=== PATIENT | male | born 1940 | race Caucasian/White ===

== ENCOUNTER 2019-12-09 09:22 | Emergency (ER) | payer MEDICARE, SELFPAY ==
--- NOTE | ~2019-12-09 | CT_ITS ---
EXAMINATION: CT brain wo con DATE: 12/09/2019 10:19 INDICATION: Syncope. TECHNIQUE: Computed tomography (CT) of the head was performed without intravenous contrast. The mA wa s adjusted according to patient size. Iterative reconstruction technique was employed. The dose-lengt h product was 605.33 mGy-cm. COMPARISON: Head CT 10/16/2015 FINDINGS: There is no intracranial hemorrhage, acute infarction, or abnormal intracranial mass lesion . The ventricles are normal in size. There are likely changes of ocular lens replacement surgeries. T here is mild mucosal thickening in the paranasal sinuses. The mastoid air cells are normal. IMPRESSION: 1. Normal brain. Reviewed, dictated and finalized at location A. IMPRESSION: 1. Normal brain.
[2019-12-09 09:30] VITALS: BP 121/64; PULSE 80; RESP 18; TEMP 36.7; O2SAT 100
[2019-12-09 09:46] VITALS: BP 128/79; BP 96/73; PULSE 138
--- NOTE | 2019-12-09 09:52 | ECG_ITS ---
Measurements Intervals [place] Rate: 84 P: ID: 0 QRS: -76 QRSD: 150 T: 19 QT: 380 QTc: 451 Interpretive Statements ATRIAL FLUTTER/TACHYCARDIA RIGHT BUNDLE BRANCH BLOCK LEFT ANTERIOR FASCICULAR BLOCK ABNORMAL ECG Electronically Signed On 12-09-2019 12:39:11 CDT by Napoleon Matute D.O.
[2019-12-09 10:00] VITALS: PULSE 78
[2019-12-09] MEDS: SODIUM CHLORIDE 0.9% IV 1,000 ML 999 ML IV CONT ×2 (10:00→12:15)
[2019-12-09 10:03] LABS: Basophils Absolute Auto 0.1 K/mm3 (0.0-0.1); Basophils Percent Auto 1.2 % (0.2-1.2); Eosinophils Absolute Auto 0.1 K/mm3 (0-0.3); Eosinophils Percent Auto 2.8 % (0-4.4); Hematocrit 40.4 % (42.0-52.0); Hemoglobin 13.9 g/dL (14.0-18.0); Immature Granulocyte Absolute 0.03 K/mm3 (0.00-0.031); Immature Granulocyte Percent A 0.6 % (0-0.5); Immature Platelet Fraction Pct 4.3 % (0.9-11.2); Lymphocytes Absolute Auto 1.37 K/mm3 (0.9-3.2); Lymphocytes Percent Auto 27.1 % (18.3-44.2); Mean Corpuscular HGB Conc 34.4 g/dl (32-36); Mean Corpuscular Hemoglobin 33.1 pg (26-34); Mean Corpuscular Volume 96.2 fl (80-100); Mean Platelet Volume 11.5 fl (7.4-10.4); Monocytes Absolute Auto 0.2 K/mm3 (0.1-0.6); Monocytes Percent Auto 4.8 % (2.6-8.5); Neutrophils Absolute Auto 3.2 K/mm3 (1.3-6.7); Neutrophils Percent Auto 63.5 % (45.5-73.1); Platelet Count Result 130 k/mm3 (150-375); Red Cell Distribution Width 13.1 % (11.5-14.5); White Blood Count 5.1 K/mm3 (4.5-10.0)
[2019-12-09 10:12] LABS: Partial Thromboplastin Time 34.4 SECONDS (22.3-36.8); Prothrombin Time 22.4 Seconds (11.1-14.7)
[2019-12-09 10:13] LABS: Blood Urea Nitrogen 17 mg/dL (9-20); Calcium 8.9 mg/dL (8.4-10.2); Carbon Dioxide 23 mmol/L (22-30); Chloride 103 mmol/L (98-107); Estimated CRCL calculation 67 ml/min; Estimated Glomerular Filt Rate > 60; Glucose 180 mg/dL (75-110); Potassium 4.1 mmol/L (3.4-5.0); Sodium 137 mmol/L (137-145)
--- NOTE | 2019-12-09 10:54 | ED.SYNCOPE ---
HPI - Syncope General Chief Complaint: Syncope Stated Complaint: syncopal episode today Time Seen by Provider: 12/09/19 09:32 History of Present Illness HPI narrative: Patient is a 79-year-old male who presents ER after experiencing syncope. Reports he had eaten breakfast and was sitting on the toilet and just finished. He was going to stand up and use the shower when he woke up on the ground with his head on the floor between his legs and his calling to see if he was okay. He is on Xarelto. Believes loss of consciousness was brief. Reports he has been eating and drinking normally. He has had no dark black stools. No diarrhea. Denies runny nose/sore throat/productive cough. No fevers or chills or sweats. Related Data Home Medications Medication Instructions Recorded Confirmed B-complex with vitamin C [Super B 1 tablet PO DAILY 12/09/19 Complex-Vitamin C] atorvastatin 20 mg PO HS 12/09/19 cetirizine [Zyrtec] 10 mg PO HS 12/09/19 diazepam 2 mg PO HS PRN 12/09/19 finasteride 5 mg PO DAILY 12/09/19 glucosamine [place] 2KCl-chondroit 2 tablet PO BID 12/09/19 [Glucosamine-Chondroitin 3X Str] levothyroxine 75 mcg PO DAILY 12/09/19 levothyroxine 100 mcg PO DAILY 12/09/19 losartan 50 mg PO DAILY 12/09/19 metoprolol tartrate 12.5 mg PO BID 12/09/19 omega 8-zdq-jsv-fish oil [[place]-3 1 cap PO BID 12/09/19 Fish Oil] omeprazole 20 mg PO BID 12/09/19 rivaroxaban [Xarelto] 20 mg PO QPM 12/09/19 tamsulosin 0.4 mg PO DAILY 12/09/19 Allergies Allergy/AdvReac Type Severity Reaction Status Date / Time erythromycin base Allergy Severe Hives Verified 12/09/19 09:35 Penicillins Allergy Severe Swelling Verified 12/09/19 09:35 house dust Allergy Intermediate Sneezing Verified 12/09/19 09:35 Sulfa (Sulfonamide Allergy Intermediate Rash Verified 12/09/19 09:35 Antibiotics) Review of Systems Review of Systems: All systems reviewed & are unremarkable except as noted in HPI and below Constitutional: Constitutional: Denies chills, Denies fever(s) and Denies weakness ENT: Denies nasal congestion and Denies sore throat Respiratory: Respiratory: Denies cough and Denies dyspnea Gastrointestinal: Gastrointestinal: Denies abdominal pain, Denies diarrhea, Denies nausea and Denies vomiting Neurologic: Denies confusion, Reports syncope, Denies headache(s), Denies focal weakness and Denies numbness PMFSH Past Medical History Medical History (Updated 12/09/19 @ 12:52 by Jordan Mcgee MD) Atrial fibrillation BPH (benign prostatic hyperplasia) GERD (gastroesophageal reflux disease) Hypertension Hypothyroidism Surgical History Surgical History (Updated 12/09/19 @ 11:11 by Jordan Mcgee MD) History of appendectomy History of bilateral knee replacement History of colonoscopy History of tonsillectomy Family History Family History (Updated 07/21/18 @ 11:07 by DOCTOR UNKNOWN) Mother Family history of diabetes mellitus in first degree relative Father Family history of heart disease in male family member before age 55 Family history of cardiovascular disease, Onset Age: 59 Sibling Asthma Patient's sister is in good health Family history of cardiovascular disease Other Diabetes mellitus Family history of allergic disorder Social History Social History Smoking status: Heavy tobacco smoker Smoking end date: 05/30/89 Alcohol intake: current Gender identity (if verbalized by the patient): Male Exam Narrative: Exam Narrative: GENERAL: Well-appearing, well-nourished, and in no acute distress. HEAD: Normocephalic, atraumatic. ENT: Mucous membranes moist. CHEST: Clear to auscultation. No respiratory distress. HEART: Regular rate and rhythm. Normal peripheral pulses. ABDOMEN: Soft, nontender, nondistended. EXTREMITIES: Normal range of motion. No edema. SKIN: Warm, dry, no rash. NEURO: No focal deficits. Alert and oriented x3. Course Course Emergency Course: P
[2019-12-09 11:22] LABS: Add Urine Microscopic? NO; Appearance Urine Clear (Clear); Bilirubin Urine Negative (Negative); Blood Urine Negative (Negative); Color Urine Yellow (Yellow); Glucose Urine UA Negative (Negative); Ketones Urine Negative (Negative); Leukocyte Esterase Ur Negative LEU/UL (Negative); Nitrate Urine Negative (Negative); Protein Urine Negative (Negative); Specific Grav Ur 1.013 (1.001-1.035); Urobilinogen Urine Negative mg/dL (<2.0)
[2019-12-09 12:02] VITALS: BP 121/73; PULSE 76
[2019-12-09 12:03] VITALS: BP 105/73; BP 111/66; PULSE 71; PULSE 87
[2019-12-09 13:09] VITALS: BP 149/81; PULSE 94; RESP 20; O2SAT 96
== END 2019-12-09 13:10 | disposition home or self-care (01) ==
PROVIDERS: Emergency Provider Emergency Medicine; PCP Family Medicine
DX: I95.1 Orthostatic hypotension (principal); I48.91 Unspecified atrial fibrillation; Z79.01 Long term (current) use of anticoagulants; N40.0 Benign prostatic hyperplasia without lower urinary tract symptoms; K21.9 Gastro-esophageal reflux disease without esophagitis; I10 Essential (primary) hypertension; E03.9 Hypothyroidism, unspecified; Z96.653 Presence of artificial knee joint, bilateral; I48.92 Unspecified atrial flutter; R00.0 Tachycardia, unspecified; I44.4 Left anterior fascicular block
CPT/HCPCS: 36415; 70450; 80048; 81003; 85025; 85055; 85610; 85730; 93005; 96360; 96361; 99284; J7030

== ENCOUNTER 2020-01-07 15:13 | Outpatient (CLI) | payer MEDICARE, SELFPAY ==
--- NOTE | ~2020-01-07 | CT_ITS ---
EXAMINATION: CT brain wo con EXAM DATE: 01/07/2020 15:53 INDICATION: Syncope. Headache posttrauma. TECHNIQUE: Spiral CT of the head was performed without contrast. Axial, coronal and sagittal images were reviewed. The dose-length product (DLP) for this examination was 681.00 mGy-cm. The exposure w as tailored according to patient size, and iterative reconstruction (ASIR) was used as additional dos e reduction technique. Comparison is made to prior examination from 12/09/2019. FINDINGS: There is no acute intraparenchymal hemorrhage. No evidence of intraparenchymal brain mass lesion. No evidence of acute infarction. Please note that initial head CT has limited sensitivity f or small or acute infarctions. There is mild periventricular and subcortical hypodensity, nonspecific but probably related to small vessel ischemic disease. There is mild prominence of the sulci and v entricles related to cerebral atrophy. There is intracranial carotid arteriosclerosis. There are n o extra-axial collections. There is no mass effect or midline shift. The orbits are unremarkable. Soft tissue is unremarkable. The visualized sinuses and mastoid air cells are well aerated. IMPRESSION: 1. No acute intracranial findings. 2. Chronic age related findings. Reviewed, dictated and finalized at location A.
== END 2020-01-07 15:14 | disposition home or self-care (01) ==
LOC: ANHIMG 15:16
PROVIDERS: PCP Family Medicine; Visit Provider Internal Medicine Cardiovascular Disease
DX: R55 Syncope and collapse (principal)
CPT/HCPCS: 70450

== ENCOUNTER 2020-01-14 00:40 | Outpatient (CLI) | payer MEDICARE, SELFPAY ==
[2020-01-14 20:23] LABS: SARS-CoV-2 RNA PCR Negative
== END 2020-01-14 00:41 | disposition home or self-care (01) ==
LOC: ANHCOVIDDT 00:41
PROVIDERS: PCP Family Medicine; Visit Provider Internal Medicine Cardiovascular Disease
DX: Z01.812 Encounter for preprocedural laboratory examination (principal); Z20.828 Contact with and (suspected) exposure to other viral communicable diseases
CPT/HCPCS: 87635; C9803; U0003

== ENCOUNTER 2020-01-16 01:54 | Day surgery (SDC) | payer MEDICARE, SELFPAY ==
[2020-01-15 15:10] VITALS: BMI 34.5
[2020-01-16 07:46] VITALS: BP 111/78; PULSE 84; RESP 14; TEMP 36.6; O2SAT 98
--- NOTE | 2020-01-16 08:48 | WPDHPUPDATE1 ---
History and Physical Update Update Date/Time: 01/16/20 08:48 History and Physical has been reviewed, including an updated exam of the patient. There are NO changes in the patient's condition. Risks, benefits, and alternatives have been discussed and questions answered. Patient agrees to proceed with procedure.
--- NOTE | 2020-01-16 08:49 | PM.PROC ---
Procedure Note - Detailed Date of procedure: 01/16/20 Pre-op diagnosis: Syncope Recurrent unexplained syncope Post-op diagnosis: same Procedure performed: elective loop recorder implantation Description of procedure: Brief history present illness: Patient is a Very pleasant 79 year male with a history of coronary disease, paroxysmal atrial fibrillation hypertension with episodes of unexplained recurrent syncope without warning referred for loop recorder implantation. External monitoring was inconclusive although patient did not have his prototypical symptoms. After verbal and written informed consent was obtained from the patient risks, benefits, and alternatives explained in detail the patient agreed to proceed with the plan of care as outlined above. Patient was evaluated at bedside in the [facility] procedure room. Patient was placed the appropriate supine position. Left anterior chest wall was prepped and draped in the usual sterile fashion. Operators in appropriate sterile garb. The left 4th intercostal space was identified and marked. Utilizing approximately 20 cc of 1% subcutaneous lidocaine the left anterior chest wall was then locally anesthetized. After local anesthesia was achieved, 2 fingerbreadths left of the sternum at the 4th intercostal space was again identified and a 1 cm incision was made with the included skin punch tool. Following this with the included introducer, a tract was made subcutaneously at a 45 degree angle from the sternum. The introducer was then inverted 180 degrees and with the included plunger the Medtronic REVEAL LINQ loop recorder was advanced subcutaneously into position easily and without complication. The plunger was then removed followed by the introducer. Manual pressure was held for least 5-10 min with excellent hemostasis. The device was then interrogated and revealed good fidelity and measured at 0.12 mV. The Medtronic REVEAL LINQ SN [id number] was implanted without complication. The incision was then approximated and closed using ExoFin skin adhesive. The incision was then covered with a sterile dressing. Complications: None Anesthesia: local Surgeon: Brian Washington MD Drains: No Packing: No Pathology: none sent Complications: No immediate complications Condition: stable Disposition: same day Findings: Successful implantation of Medtronic Reveal LINQ for recurrent unexplained syncope.
--- NOTE | 2020-01-16 10:03 | SUR.OPER ---
Patient has no signs of bleeding or hematoma from procedure site. Dressing placed over chest site. Patient shows no signs of distress. Patient to be discharged.
== END 2020-01-16 10:20 | disposition home or self-care (01) ==
PROVIDERS: PCP Family Medicine; Visit Provider Internal Medicine Cardiovascular Disease
PROC: (CPT 33285; principal; 2020-01-16 08:30)
DX: R55 Syncope and collapse (principal); I25.10 Atherosclerotic heart disease of native coronary artery without angina pectoris; I48.0 Paroxysmal atrial fibrillation; I10 Essential (primary) hypertension; I45.2 Bifascicular block; Z79.01 Long term (current) use of anticoagulants
CPT/HCPCS: 33285; C1764

== ENCOUNTER 2021-12-11 12:45 | Outpatient (CLI) | payer MEDICARE, SELFPAY ==
--- NOTE | ~2021-12-11 | US_ITS ---
EXAMINATION: US venous doppler LE RT DATE: 12/11/2021 13:29 INDICATION: Right lower limb pain and swelling. TECHNIQUE: Grayscale ultrasound images without and with compression and Doppler ultrasound images of the right lower extremity veins were obtained. COMPARISON: Ultrasound 04/18/2018 FINDINGS: The visualized portions of right common femoral vein, profunda (deep) femoral vein, femoral vein, pop liteal vein, peroneal veins, posterior tibial veins, and greater saphenous vein outflow are patent. T here is a 3.4 x 1.0 x 2.7 cm hematoma inferior to the knee. IMPRESSION: 1. No deep venous thrombosis. 2. 3.4 cm hematoma inferior to the knee. Reviewed, dictated and finalized at location A.
== END 2021-12-11 12:46 | disposition home or self-care (01) ==
PROVIDERS: PCP Family Medicine; Visit Provider Physician Assistant
DX: E03.9 Hypothyroidism, unspecified (principal); G47.00 Insomnia, unspecified; R60.9 Edema, unspecified; S80.11XD Contusion of right lower leg, subsequent encounter
CPT/HCPCS: 93971

== ENCOUNTER → 2022-08-23 12:09 | Outpatient (CLI) | payer MEDICARE, SELFPAY ==
--- NOTE | ~2022-08-23 | XR_ITS ---
XR cervical spine 4-5V DATE: 08/23/2022 12:40 INDICATION: Neck pain TECHNIQUE: AP, open-mouth, lateral, swimmer views, bilateral oblique views COMPARISON: None FINDINGS: There is osteopenia. There is straightening of the cervical spine which may be due to muscle spasm. C1 and C2 are normally aligned and the odontoid process is intact. No fracture or dislocation or lock ed facet or prevertebral soft tissue swelling. There is prominent anterior spurring throughout the cervical spine. Moderate degenerative disease at C2-3. C3-4 and C4-5 interspaces are relatively preserved. Approximately 1.5 mm anterolisthesis at C4-5. Moderately severe degenerative disc disease at C5-6 and C6-7. Left-sided cardiac pacemaker device. IMPRESSION: Straightening of cervical spine which may be due to muscle spasm Osteopenia Prominent cervical spondylosis Reviewed, dictated and finalized at location B.
== END ==
PROVIDERS: PCP Family Medicine; Visit Provider Physician Assistant
DX: M47.812 Spondylosis without myelopathy or radiculopathy, cervical region (principal); M85.88 Other specified disorders of bone density and structure, other site
CPT/HCPCS: 72050

== ENCOUNTER 2022-08-26 14:22 | Outpatient (CLI) | payer MEDICARE, SELFPAY ==
--- NOTE | ~2022-08-26 | CT_ITS ---
EXAMINATION: CT brain wo con DATE: 08/26/2022 14:38 INDICATION: Headache at vertex for 2 weeks TECHNIQUE: Computed tomography (CT) of the head was performed without intravenous contrast. The mA wa s adjusted according to patient size. Iterative reconstruction technique was employed. Exam dose: 60 5.33 mGy-cm total exam DLP. COMPARISON: 01/07/2020 CT brain FINDINGS: There is a 2.3 cm heterogeneous largely hyperdense right cerebellar hemispheric mass with s urrounding vasogenic edema. No other intracranial mass lesion or hemorrhage, midline shift or mass effect is noted. Moderate central and cortical cerebral volume loss. Bilateral vertebral artery, basilar artery and bilateral carotid siphon and supraclinoid internal car otid artery calcifications are noted. There is nonspecific diminished attenuation cerebral white eddie er, likely due to chronic small vessel ischemic changes. No subdural or epidural hematoma. The included mastoid air cells and paranasal sinuses are normally developed and aerated. No fracture or bone destruction of the cranial vault is detected. IMPRESSION: 2.3 cm right cerebellar mass lesion with adjacent vasogenic edema; diffusion diagnosis i ncludes primary or metastatic brain neoplasm, meningioma Reviewed, dictated and finalized at Location A. Reviewed, dictated and finalized at location L. 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
== END 2022-08-26 14:23 | disposition home or self-care (01) ==
PROVIDERS: PCP Family Medicine; Visit Provider Physician Assistant
DX: R51.9 Headache, unspecified (principal); G93.89 Other specified disorders of brain
CPT/HCPCS: 70450

== ENCOUNTER 2023-04-07 01:02 | Emergency (ER) | payer MEDICARE, SELFPAY ==
--- NOTE | ~2023-04-07 | XR_ITS ---
Portable chest x-ray Comparison: 12/26/2014 Clinical History: Pain Findings: There is probable linear left basilar scarring, stable from prior exam. No acute pulmonary abnormality seen. Cardiomediastinal silhouette is stable, with pacemaker device and cardiac loop re sanju. Bones and soft tissues are unremarkable. Impression: No acute pulmonary abnormality. Mild cardiomegaly with pacemaker device and cardiac loop recorder. Reviewed, dictated and finalized at location . ER SPRAYER Impression: No acute pulmonary abnormality. Mild cardiomegaly with pacemaker device and cardiac loop recorder.
--- NOTE | ~2023-04-07 | CT_ITS ---
CT of the Abdomen and Pelvis: Indication: Abdominal pain Technique: 2.5 mm axial scans were obtained through the abdomen and pelvis following intravenous adm inistration of 100 cc of Omnipaque 350. Dose reduction technique was used on this scan by utilizing a utomated exposure control and iterative reconstruction technique. The dose-length product (DLP) was 1 214.81 mGy-cm. Findings: Scans through the lung bases are unremarkable. The liver, spleen, pancreas, adrenals and kidneys are within normal limits. Small gallstones present. There are atherosclerotic calcifications of the aorta. No lymphadenopathy. No bowel obstruction or bowel wall thickening. There is no evidence to suggest acute appendicitis. Images through the pelvis were performed. Urinary bladder unremarkable. Prostate gland is enlarged. N o ascites. Impression: Cholelithiasis. Enlarged prostate gland. Reviewed, dictated and finalized at location . FITTER Impression: Cholelithiasis. Enlarged prostate gland.
[2023-04-07 01:05] VITALS: BP 167/78; PULSE 81; RESP 20; TEMP 36.8; O2SAT 97
[2023-04-07 01:36] VITALS: BP 140/71; PULSE 56; RESP 18; O2SAT 99
--- NOTE | 2023-04-07 01:42 | ECG_ITS ---
Measurements Intervals [place] Rate: 51 P: DE: 0 QRS: -52 QRSD: 174 T: 67 QT: 484 QTc: 449 Interpretive Statements ELECTRONIC VENTRICULAR PACEMAKER UNDERLYING ATRIAL FIBRILLATION/FLUTTER NO FURTHER INTERPRETATION IS POSSIBLE ABNORMAL ECG COMPARED TO ECG 12/09/2019 09:32:25 NO SIGNIFICANT CHANGES Electronically Signed On 04-07-2023 7:11:58 [employer] by Napoleon Matute D.O.
--- NOTE | 2023-04-07 01:45 | ED.GENADULT ---
HPI - General Adult General Chief complaint: Abdominal Pain Stated complaint: abd pain Time Seen by Provider: 04/07/23 01:32 History of Present Illness HPI narrative: Patient 83-year-old gentleman who presents the emergency department with chief complaint of epigastric pain. Patient reports that this evening he started having discomfort in his epigastric region the patient reports is nonradiating reports no nausea no vomiting denies fever. Patient reports he took some Tums some Pepto-Bismol and did not have any improvement in his symptoms. Patient reports prior history of an appendectomy reports he does have history of A-fib has a pacemaker. The patient also reports he has history of hiatal hernia. The patient denies specific localizing chest pain Related Data Home Medications Medication Instructions Recorded Confirmed B-complex with vitamin C (Super B 1 tablet PO DAILY 12/09/19 12/03/22 Complex-Vitamin C tablet) cetirizine 10 mg tablet (Zyrtec) 10 mg PO HS 12/09/19 12/03/22 finasteride 5 mg tablet 5 mg PO DAILY 12/09/19 12/03/22 glucosamine sulf dipotassium Cl 1 tablet PO BID 12/09/19 12/03/22 750 mg-chondroitin sulf 600 mg tablet (Glucosamine-Chondroitin 3X Triple Strength) levothyroxine 100 mcg tablet 100 mcg PO DAILY 12/09/19 12/03/22 levothyroxine 75 mcg tablet 75 mcg PO DAILY 12/09/19 12/03/22 losartan 50 mg tablet 50 mg PO DAILY 12/09/19 12/03/22 omega 4-aad-kxi-fish oil 910 1 cap PO BID 12/09/19 12/03/22 mg-1,400 mg capsule ([place]-3 Fish Oil) omeprazole 20 mg capsule,delayed 20 mg PO BID 12/09/19 12/03/22 release rivaroxaban 20 mg tablet (Xarelto) 20 mg PO QPM 12/09/19 12/03/22 tamsulosin 0.4 mg capsule 0.4 mg PO DAILY 12/09/19 12/03/22 metoprolol tartrate 25 mg tablet 25 mg PO BID 06/12/22 12/03/22 Allergies Allergy/AdvReac Type Severity Reaction Status Date / Time erythromycin base Allergy Severe Hives Verified 12/03/22 09:35 Penicillins Allergy Severe Swelling Verified 12/03/22 09:35 house dust Allergy Intermediate Sneezing Verified 12/03/22 09:35 Sulfa (Sulfonamide Allergy Intermediate Rash Verified 12/03/22 09:35 Antibiotics) clindamycin Allergy Difficulty Verified 04/07/23 02:00 Swallowing Review of Systems Review of Systems: A 10 system review of systems was completed on the patient and is negative except for what is stated in the HPI. Nursing and ancillary documentation was reviewed. 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 Benign prostatic hyperplasia with lower urinary tract symptoms BPH (benign prostatic hyperplasia) Central retinal vein occlusion, right eye, with retinal neovascularization Erectile dysfunction GERD (gastroesophageal reflux disease) Hyperlipidemia, unspecified Hypertension Hypothyroidism Insomnia, unspecified snf current use of anticoagulant therapy Low back pain, unspecified Venous insufficiency (chronic) (peripheral) Surgical History Surgical History 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
[2023-04-07 01:58] LABS: Basophils Percent Auto 0.9 % (0.2-1.2); Eosinophils Absolute Auto 0.1 K/mm3 (0-0.3); Hematocrit 35.6 % (42.0-52.0); Hemoglobin 11.3 g/dL (14.0-18.0); Immature Granulocyte Absolute 0.01 K/mm3 (0.00-0.031); Immature Granulocyte Percent A 0.2 % (0-0.5); Lymphocytes Absolute Auto 0.92 K/mm3 (0.9-3.2); Lymphocytes Percent Auto 20.7 % (18.3-44.2); Mean Corpuscular HGB Conc 31.7 g/dl (32-36); Mean Corpuscular Hemoglobin 31.7 pg (26-34); Monocytes Absolute Auto 0.3 K/mm3 (0.1-0.6); Monocytes Percent Auto 7.4 % (2.6-8.5); Neutrophils Absolute Auto 3.1 K/mm3 (1.3-6.7); Neutrophils Percent Auto 68.8 % (45.5-73.1); Platelet Count Result 127 k/mm3 (150-375); Red Blood Count 3.56 M/mm3 (4.6-6.20); Red Cell Distribution Width 14.4 % (11.5-14.5); White Blood Count 4.5 K/mm3 (4.5-10.0)
[2023-04-07] MEDS: MORPHINE SULFATE (*CRX) 4 MG/ML INJ 2 MG IV PUSH (01:58)
[2023-04-07] MEDS: FAMOTIDINE 20 MG/2 ML VIAL IV PUSH (01:58)
[2023-04-07] MEDS: PANTOPRAZOLE SODIUM IV 40 MG VIAL IV PUSH (01:58)
[2023-04-07] MEDS: ONDANSETRON INJ 4 MG/2 ML VIAL IV PUSH (01:58)
[2023-04-07] MEDS: SODIUM CHLORIDE 0.9% IV 1,000 ML 500 ML IV CONT (01:59)
[2023-04-07 02:11] LABS: INR 2.8; Prothrombin Time 31.7 Seconds (11.1-14.7)
[2023-04-07 02:12] LABS: Partial Thromboplastin Time 42.6 SECONDS (22.3-36.8)
[2023-04-07 02:13] LABS: Lactic Acid Reflex 1.8 mmol/L (0.7-2.0)
[2023-04-07 02:41] LABS: Alanine Aminotransferase 29 U/L (6-50); Albumin Level 3.9 g/dL (3.5-5.1); Alkaline Phosphatase 64 U/L (38-126); Anion Gap 6 mmol/L (8-16); Aspartate Amino Transferase 38 U/L (17-59); Bilirubin,Total 0.8 mg/dL (0.2-1.3); Blood Urea Nitrogen 17 mg/dL (9-20); Calcium 8.9 mg/dL (8.4-10.2); Carbon Dioxide 30 mmol/L (22-30); Chloride 103 mmol/L (98-107); Estimated CRCL calculation 48 ml/min; Estimated Glomerular Filt Rate 58; Glucose 134 mg/dL (65-110); Lipase 70 U/L (23-300); Magnesium 2.1 mg/dL (1.6-2.3); NT Pro B Type Natriuretic Pept 1450 pg/mL (19.9-100); Potassium 4.9 mmol/L (3.4-5.0); Sodium 139 mmol/L (137-145); Troponin I < 0.012 ng/mL (0.000-0.034)
[2023-04-07 03:08] VITALS: BP 141/77; PULSE 50; RESP 16; O2SAT 98
[2023-04-07 03:48] LABS: Appearance Urine Clear (Clear); Bilirubin Urine Negative (Negative); Blood Urine Negative (Negative); Color Urine Yellow (Yellow); Glucose Urine UA Negative (Negative); Ketones Urine Negative (Negative); Leukocyte Esterase Ur Negative LEU/UL (Negative); Nitrate Urine Negative (Negative); Protein Urine Negative (Negative); Urobilinogen Urine 0.2 mg/dL (<2.0)
[2023-04-07 03:58] LABS: Specific Grav Ur 1.036 (1.001-1.035)
[2023-04-07 03:59] LABS: Add Urine Microscopic? NO
[2023-04-07 04:42] VITALS: BP 133/69; PULSE 50; RESP 18; O2SAT 98
[2023-04-07 05:05] LABS: Troponin I < 0.012 ng/mL (0.000-0.034)
[2023-04-07 06:23] VITALS: BP 134/72; PULSE 54; RESP 16; O2SAT 99
== END 2023-04-07 06:23 | disposition home or self-care (01) ==
PROVIDERS: Emergency Provider Emergency Medicine; PCP Family Medicine
DX: K80.20 Calculus of gallbladder without cholecystitis without obstruction (principal); I48.91 Unspecified atrial fibrillation; I25.10 Atherosclerotic heart disease of native coronary artery without angina pectoris; I10 Essential (primary) hypertension; I87.2 Venous insufficiency (chronic) (peripheral); E78.5 Hyperlipidemia, unspecified; E03.9 Hypothyroidism, unspecified; N40.0 Benign prostatic hyperplasia without lower urinary tract symptoms; K22.70 Barrett's esophagus without dysplasia; K21.9 Gastro-esophageal reflux disease without esophagitis; Z95.0 Presence of cardiac pacemaker; Z96.653 Presence of artificial knee joint, bilateral; Z98.49 Cataract extraction status, unspecified eye; Z96.1 Presence of intraocular lens; Z87.891 Personal history of nicotine dependence; Z79.01 Long term (current) use of anticoagulants
CPT/HCPCS: 36415; 71045; 74177; 80053; 81003; 83605; 83690; 83735; 83880; 84484; 85025; 85610; 85730; 93005; 96361; 96374; 96375; 99284; C9113; J2270; J2405; J7030; Q9967

== ENCOUNTER 2023-04-27 11:13 | Outpatient (CLI) | payer MEDICARE, SELFPAY ==
[2023-04-27 11:54] LABS: Amylase 50 U/L (30-110)
== END 2023-04-27 11:14 | disposition home or self-care (01) ==
LOC: ANHSURGERY 11:20
PROVIDERS: PCP Family Medicine; Visit Provider Surgery
DX: Z01.818 Encounter for other preprocedural examination (principal); K80.20 Calculus of gallbladder without cholecystitis without obstruction
CPT/HCPCS: 36415; 82150; 86850; 86900; 86901

== ENCOUNTER 2023-05-03 00:07 | Day surgery (SDC) | payer MEDICARE, SELFPAY ==
--- NOTE | 2023-04-26 14:51 | PC.NURSE ---
Report to the Outpatient Waiting Room, entrance under the green pavilion located off [facility], at time __0800 on date __05/03/23 . Planned Procedure Time: __1000 . Time changes happen often and if your time is changed the preop area will call you the afternoon before. - You and your visitor will be asked to self-screen and do not enter if you have any COVID symptoms. - A mask is optional within the hospital at this time. Patients may have clear liquids (water, carbonated beverages, clear teas, apple juice) until 3 hours prior to surgery with a maximum of 20 ounces. - No food from midnight until time of surgery - Infants may have breast milk until 4 hours before surgery, infant formula 6 hours prior to surgery. - Children will be allowed to drink immediately following surgery. If applicable, please bring a bottle or sippy cup to assist with drinking. Juice, water, soda, and popsicles are readily available. For infants on formula, please bring formula the day of surgery. Pacifiers are allowed. Take the following medications with a SIP of water the morning of surgery: __LEVOTHYROXINE,METOPROLOL DO NOT STOP ANY OF YOUR OTHER PRESCRIPTION MEDICATIONS PRIOR TO SURGERY ?EXCEPT THE FOLLOWING Medications to discontinue per physician _HOLD XARELTO 2 DAYS PRE OP PER DR BACA.LAST DOSE 04/30/23. ALL VITAMINS AND SUPPLEMENTS 3 DAYS PRE OP.LAST DOSE 04/29/23 Please no make-up, nail [place], hairspray, perfume, deodorant, or body powder the day of surgery. No jewelry (including any body piercings) or valuables the day of surgery, leave them at home. Please take a shower or bath the night before, or the morning of, surgery with an antibacterial soap. Wear comfortable, loose fitting clothing. Children are encouraged to wear pajamas. - Jewelry must be removed prior to entering the operating room. Rings and piercings that are not removed may be cut off. - The hospital will not accept responsibility for valuables. - Please leave all valuables, including medications, at home the day of surgery. If you are going home after surgery, a licensed [employer] driver must drive you home. - NO public transportation without another adult if you receive anesthesia. - We recommend that an adult stay with you for 24 hours following discharge. - We also recommend that you do not drive, make important decision, drink alcoholic beverages, or take any drugs that were not prescribed by your health care provider for at least 24 hours after your discharge time. For Pediatric surgeries, we recommend two adults accompany the child home. Follow any additional instructions given to you from your surgeon. If you or anyone in your household have experienced Covid symptoms in the past week, please notify your surgeon or the nurse liaison at the phone number below for possible testing. Telephone instructions given to ___PATIENT and asked if any additional questions and then verbalized understanding. Patient advised to call surgeon office or pre surgery nurse liaison [phone] if any additional questions.
[2023-04-26 15:18] VITALS: BMI 36.6
[2023-05-03] VITALS (10 sets, daily range): BP systolic 105–146; BP diastolic 64–79; PULSE 50–75; RESP 16–28; TEMP 36.4–36.9; O2SAT 92–100
[2023-05-03] MEDS: ACETAMINOPHEN 500 MG TABLET 1000 MG PO (08:17)
[2023-05-03] MEDS: LACTATED RINGERS 1,000 ML 30 ML IV CONT ×2 (08:37→11:40)
[2023-05-03] MEDS: KETOROLAC 15 MG/ML VIAL (*BKC) IV PUSH (08:42)
[2023-05-03] MEDS: INDOCYANINE GREEN 25 MG VIAL WITH DILUENT 3.75 MG IV PUSH (08:42)
--- NOTE | 2023-05-03 10:02 | WPDHPUPDATE1 ---
History and Physical Update Update Date/Time: 05/03/23 10:02 History and Physical has been reviewed, including an updated exam of the patient. There are NO changes in the patient's condition. The plan will change to recommending laparoscopic cholecystectomy, da David assisted. Otherwise the assessment and recommendations are unchanged. Risks, benefits, and alternatives have been discussed and questions answered. Patient agrees to proceed with procedure.
--- NOTE | 2023-05-03 10:08 | WPDANESEPPF ---
Anes - Initial Pre Proc Eval Procedure: Operation Date: 05/03/23 10:00 Proposed Procedures p Laparoscopic Cholecystectomy, Davinci Assisted - Freddie Ruth DO Date/Time: 05/03/23 10:08 Surgeon: Freddie Ruth DO Pre Op Diagnosis: symptomatic cholelithiasis Patient Data Age: 83 Gender: M Height: 1.65 m Weight: 98.3 kg Last Vital Signs Temp 97.6 F 05/03/23 08:44 Pulse 65 05/03/23 08:44 Resp 16 05/03/23 08:44 BP 118/64 05/03/23 08:44 Pulse Ox 97 05/03/23 08:44 O2 Del Method Room Air 05/03/23 08:44 Allergies Allergy/AdvReac Type Severity Reaction Status Date / Time erythromycin base Allergy Severe Hives Verified 05/03/23 08:12 Penicillins Allergy Severe Swelling Verified 05/03/23 08:12 house dust Allergy Intermediate Sneezing Verified 05/03/23 08:12 Sulfa (Sulfonamide Allergy Intermediate Rash Verified 05/03/23 08:12 Antibiotics) clindamycin Allergy Difficulty Verified 05/03/23 08:12 Swallowing Home Medications Medication Instructions Recorded Confirmed Type B-complex with vitamin C (Super B 1 tablet PO DAILY 12/09/19 04/26/23 History Complex-Vitamin C tablet) cetirizine 10 mg tablet (Zyrtec) 10 mg PO HS 12/09/19 04/26/23 History finasteride 5 mg tablet 5 mg PO HS 12/09/19 04/26/23 History glucosamine sulf dipotassium Cl 1 tablet PO BID 12/09/19 04/26/23 History 750 mg-chondroitin sulf 600 mg tablet (Glucosamine-Chondroitin 3X Triple Strength) levothyroxine 100 mcg tablet 100 mcg PO DAILY 12/09/19 04/26/23 History levothyroxine 75 mcg tablet 75 mcg PO 4XW 12/09/19 04/26/23 History losartan 50 mg tablet 50 mg PO DAILY 12/09/19 04/26/23 History omega 2-wxl-kij-fish oil 910 1 cap PO BID 12/09/19 04/26/23 History mg-1,400 mg capsule ([place]-3 Fish Oil) omeprazole 20 mg capsule,delayed 20 mg PO BID 12/09/19 04/26/23 History release rivaroxaban 20 mg tablet (Xarelto) 20 mg PO QPM 12/09/19 04/26/23 History tamsulosin 0.4 mg capsule 0.4 mg PO DAILY 12/09/19 04/26/23 History atorvastatin 20 mg tablet 20 mg PO QHS 90 days #90 tabs 12/13/22 04/26/23 Rx triamcinolone acetonide 0.1 % 1 applic topical BID PRN rash #80 12/30/22 04/26/23 Rx topical cream grams diazepam 2 mg tablet 2 mg PO HS PRN Muscle Pain #90 tabs 04/04/23 04/26/23 Rx famotidine 40 mg tablet (Pepcid) 40 mg PO DAILY #30 tabs 04/07/23 04/26/23 Rx metoprolol tartrate 50 mg tablet 50 mg PO BID 04/26/23 04/26/23 History psyllium husk 0.4 gram capsule 0.4 g PO BID 04/26/23 04/26/23 History (Fiber (psyllium husk)) Patient hx anesthesia problems: none Family hx anesthesia problems: none Results Review: All pre-operative results and documents have been reviewed as part of the pre-operative evaluation. 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 Benign prostatic hyperplasia with lower urinary tract symptoms BPH (benign prostatic hyperplasia) Central retinal vein occlusion, right eye, with retinal neovascularization Erectile dysfunction GERD (gastroesophageal reflux disease) Hyperlipidemia, unspecified Hypertension Hypothyroidism Insomnia, unspecified senior care current use of anticoagulant therapy Low back pain, unspecified Venous insufficiency (chronic) (peripheral) Surgical History Surgical History 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
[2023-05-03] MEDS: ceFAZolin 2 GM/D5W 50 ML 2 GM/50 ML BAG IVPB (10:32)
[2023-05-03] MEDS: BUPIVACAINE/EPINEPHRINE 0.5% 50 ML VIAL 30 ML INFILTRATE (10:53)
--- NOTE | 2023-05-03 11:45 | W.PM.PROC2 ---
Procedure Note - Detailed Date of Procedure 05/03/23 Pre-op Diagnosis symptomatic cholelithiasis Post-op Diagnosis Same Procedure Performed 1. Laparoscopic cholecystectomy with cholangiography, da David assisted 2. Interpretation of cholangiography Surgeon Freddie Ruth DO Anesthesia General and Local (0.5% bupivacaine) Indications This is an 83-year-old man who presented to the emergency department 1 month ago with epigastric pain. CT head showed evidence of cholelithiasis. He he did not have any signs of cholecystitis at that time. He was then seen in the office and discussions were made with the patient about treatment options. Decision was made to proceed with laparoscopic cholecystectomy da David assisted, possible open. Findings Laparoscopic cholecystectomy was performed. The patient received indocyanine green intravenously preop. This was used with near infrared fluorescent imaging to adequately visualize the biliary anatomy. There appeared to likely be a stone lodged within the cystic duct and no uptake was visualized within the gallbladder itself. The more distal cystic duct did appear to have indocyanine green perfusion. The common bile duct was also identified and protected in its location. The gallbladder appeared slightly dilated and contained gallbladder sludge. The cystic duct appeared normal in size. The gallbladder was removed and sent to the lab for pathology. Description of Procedure Procedure as well as risks, benefits, and alternatives were discussed with the patient. Written consent was obtained and placed in chart prior to procedure. 1.5 mL of indocyanine green was given intravenously in preop. Patient was brought back to surgical suite. She was placed supine on operating table. Time-out was done to confirm patient and procedure. She was then intubated by the anesthesia department. Her abdomen was then prepped and draped in sterile fashion using chlorhexidine prep. 0.5% bupivacaine was infiltrated locally at the site of each port placement. An 8 mm incision was made just superior to the umbilicus and a 5 mm Optiview trocar was then advanced through the abdominal layers under direct visualization. Once inside the abdominal cavity, carbon dioxide insufflation was used to create a pneumoperitoneum. The camera was inserted and the abdomen was inspected. No mediated abnormalities were noted. The patient was placed in 10? reverse Trendelenburg position and rotated 10? to the left. Two 8 mm incisions were made in the right lateral abdomen and 2 8 mm trocars were inserted under direct visualization. A 12 mm incision was made in the left lateral abdomen and a 12 mm trocar was inserted under direct visualization. The 5 mm Optiview trocar was then removed and another 8 mm trocar was inserted in its place. The robotic arms were then brought up to the patient's bedside and secured to each port. The camera and instruments were inserted. I then moved over to the robotic consult to take control of the camera and instruments. The gallbladder was grasped at the fundus and retracted cephalad. The infundibulum of the gallbladder was then grasped and retracted laterally. Hook electrocautery was then used to carefully dissect around the neck of the gallbladder. The cystic duct was identified and a window was created around it using hook electrocautery. The cystic artery was also identified and a window was created behind it using hook electrocautery. Critical view of safety was identified visualizing the cystic duct running directly into the neck of the gallbladder and the cystic artery running directly into the wall the gallbladder. The camera view was switched to firefly mode and the indocyanine green within the gallbladder and cystic duct was clearly visualized. No other structures were noted running into this region and there did not appear to be any obstruction of the cystic duct impeding flow of bile into the gallbladder. The
[2023-05-03] MEDS: ONDANSETRON INJ 4 MG/2 ML VIAL IV PUSH (12:10)
[2023-05-03] MEDS: fentaNYL CITRATE INJ (*CRX) 100 MCG/2 ML VIAL 25 MCG IV PUSH ×2 (12:16→12:21)
[2023-05-03] MEDS: oxyCODONE HCL (*CRX) 5 MG TAB IR PO (13:10)
== END 2023-05-03 14:15 | disposition home or self-care (01) ==
PROVIDERS: PCP Family Medicine; Visit Provider Surgery
PROC: 0FT44ZZ Resection of Gallbladder, Percutaneous Endoscopic Approach (ICD-10-PCS; CPT 47562; principal; 2023-05-03 10:00)
DX: K80.20 Calculus of gallbladder without cholecystitis without obstruction (principal); I48.0 Paroxysmal atrial fibrillation; K21.9 Gastro-esophageal reflux disease without esophagitis; E78.5 Hyperlipidemia, unspecified; I10 Essential (primary) hypertension; E03.9 Hypothyroidism, unspecified; Z87.891 Personal history of nicotine dependence
CPT/HCPCS: 47563; 88304; A9270; J0690; J1100; J1885; J2405; J2704; J2710; J3010; J7120

== ENCOUNTER 2023-10-05 12:01 | Outpatient (CLI) | payer MEDICARE, SELFPAY ==
[2023-10-05 12:24] LABS: Basophils Absolute Auto 0.1 K/mm3 (0.0-0.1); Basophils Percent Auto 1.3 % (0.2-1.2); Eosinophils Absolute Auto 0.3 K/mm3 (0-0.3); Eosinophils Percent Auto 5.4 % (0-4.4); Hematocrit 29.2 % (42.0-52.0); Immature Granulocyte Absolute 0.04 K/mm3 (0.00-0.031); Immature Granulocyte Percent A 0.9 % (0-0.5); Lymphocytes Absolute Auto 1.16 K/mm3 (0.9-3.2); Lymphocytes Percent Auto 25.2 % (18.3-44.2); Mean Corpuscular HGB Conc 30.8 g/dl (32-36); Mean Corpuscular Hemoglobin 28.4 pg (26-34); Mean Corpuscular Volume 92.1 fl (80-100); Mean Platelet Volume 9.9 fl (7.4-10.4); Monocytes Absolute Auto 0.4 K/mm3 (0.1-0.6); Monocytes Percent Auto 7.8 % (2.6-8.5); Neutrophils Absolute Auto 2.7 K/mm3 (1.3-6.7); Neutrophils Percent Auto 59.4 % (45.5-73.1); Platelet Count Result 148 k/mm3 (150-375); Red Blood Count 3.17 M/mm3 (4.6-6.20); Red Cell Distribution Width 15.3 % (11.5-14.5); White Blood Count 4.6 K/mm3 (4.5-10.0)
[2023-10-05 16:35] LABS: Iron 56 ug/dL (49-181)
[2023-10-05 16:39] LABS: Alanine Aminotransferase 18 U/L (6-50); Albumin Level 4.2 g/dL (3.5-5.1); Alkaline Phosphatase 89 U/L (38-126); Anion Gap 10 mmol/L (4-12); Aspartate Amino Transferase 27 U/L (17-59); Bilirubin,Total 0.8 mg/dL (0.2-1.3); Blood Urea Nitrogen 16 mg/dL (9-20); Calcium 9.4 mg/dL (8.4-10.2); Carbon Dioxide 25 mmol/L (22-30); Chloride 106 mmol/L (98-107); Estimated Glomerular Filt Rate 58; Glucose 95 mg/dL (65-110); Lactate Dehydrogenase 200 U/L (120-246); Potassium 4.5 mmol/L (3.4-5.0); Sodium 141 mmol/L (137-145)
[2023-10-05 16:46] LABS: Percent Iron Saturation 13 % (20-50)
[2023-10-05 18:19] LABS: Folic Acid > 20.0 ng/mL (2.76->20)
[2023-10-08 11:28] LABS: Methylmalonic Acid 214 nmol/L (87-318)
[2023-10-12 13:08] LABS: Soluble Transferrin Receptor 2.03 mg/L (0.76-1.76)
== END 2023-10-05 12:02 | disposition home or self-care (01) ==
LOC: ANHLAB 12:04
PROVIDERS: PCP Family Medicine; Visit Provider Nurse Practitioner Family
DX: D50.9 Iron deficiency anemia, unspecified (principal)
CPT/HCPCS: 36415; 80053; 82607; 82728; 82746; 83540; 83550; 83615; 83921; 84238; 85025; 86038

== ENCOUNTER 2024-01-02 09:34 | Outpatient (CLI) | payer MEDICARE, SELFPAY ==
[2024-01-02 10:07] LABS: Basophils Absolute Auto 0.1 K/mm3 (0.0-0.1); Basophils Percent Auto 1.1 % (0.2-1.2); Eosinophils Absolute Auto 0.1 K/mm3 (0-0.3); Eosinophils Percent Auto 2.8 % (0-4.4); Hematocrit 37.5 % (42.0-52.0); Hemoglobin 12.7 g/dL (14.0-18.0); Immature Granulocyte Absolute 0.04 K/mm3 (0.00-0.031); Immature Granulocyte Percent A 0.9 % (0-0.5); Lymphocytes Absolute Auto 0.96 K/mm3 (0.9-3.2); Lymphocytes Percent Auto 20.8 % (18.3-44.2); Mean Corpuscular HGB Conc 33.9 g/dl (32-36); Mean Corpuscular Volume 100.3 fl (80-100); Mean Platelet Volume 9.6 fl (7.4-10.4); Monocytes Absolute Auto 0.3 K/mm3 (0.1-0.6); Monocytes Percent Auto 5.8 % (2.6-8.5); Neutrophils Absolute Auto 3.2 K/mm3 (1.3-6.7); Neutrophils Percent Auto 68.6 % (45.5-73.1); Platelet Count Result 132 k/mm3 (150-375); Red Blood Count 3.74 M/mm3 (4.6-6.20); Red Cell Distribution Width 15.8 % (11.5-14.5); White Blood Count 4.6 K/mm3 (4.5-10.0)
[2024-01-02 12:51] LABS: Iron 97 ug/dL (49-181)
[2024-01-02 12:55] LABS: Alanine Aminotransferase 18 U/L (6-50); Alkaline Phosphatase 86 U/L (38-126); Anion Gap 4 mmol/L (4-12); Aspartate Amino Transferase 31 U/L (17-59); Bilirubin,Total 0.9 mg/dL (0.2-1.3); Blood Urea Nitrogen 13 mg/dL (9-20); Calcium 9.3 mg/dL (8.4-10.2); Carbon Dioxide 34 mmol/L (22-30); Chloride 101 mmol/L (98-107); Estimated Glomerular Filt Rate > 60; Glucose 103 mg/dL (65-110); Potassium 5.2 mmol/L (3.4-5.0); Sodium 139 mmol/L (137-145)
[2024-01-02 13:03] LABS: Percent Iron Saturation 37 % (20-50)
[2024-01-02 14:06] LABS: Folic Acid > 20.0 ng/mL (2.76->20)
== END 2024-01-02 09:35 | disposition home or self-care (01) ==
LOC: ANHLAB 09:36
PROVIDERS: Nurse Practitioner Family; PCP Family Medicine; Visit Provider Internal Medicine Hematology & Oncology
DX: D50.9 Iron deficiency anemia, unspecified (principal)
CPT/HCPCS: 36415; 80053; 82607; 82728; 82746; 83540; 83550; 85025

== ENCOUNTER 2024-05-01 08:56 | Outpatient (CLI) | payer MEDICARE, SELFPAY ==
[2024-05-01 09:13] LABS: Basophils Absolute Auto 0.1 K/mm3 (0.0-0.1); Basophils Percent Auto 1.2 % (0.2-1.2); Eosinophils Absolute Auto 0.1 K/mm3 (0-0.3); Eosinophils Percent Auto 2.9 % (0-4.4); Hematocrit 36.9 % (42.0-52.0); Hemoglobin 12.5 g/dL (14.0-18.0); Immature Granulocyte Absolute 0.02 K/mm3 (0.00-0.031); Immature Granulocyte Percent A 0.5 % (0-0.5); Lymphocytes Percent Auto 19.3 % (18.3-44.2); Mean Corpuscular HGB Conc 33.9 g/dl (32-36); Mean Corpuscular Hemoglobin 34.9 pg (26-34); Mean Corpuscular Volume 103.1 fl (80-100); Mean Platelet Volume 10.5 fl (7.4-10.4); Monocytes Absolute Auto 0.3 K/mm3 (0.1-0.6); Monocytes Percent Auto 7.2 % (2.6-8.5); Neutrophils Absolute Auto 2.9 K/mm3 (1.3-6.7); Neutrophils Percent Auto 68.9 % (45.5-73.1); Platelet Count Result 105 k/mm3 (150-375); Red Blood Count 3.58 M/mm3 (4.6-6.20); Red Cell Distribution Width 13.2 % (11.5-14.5); White Blood Count 4.2 K/mm3 (4.5-10.0)
[2024-05-01 12:58] LABS: Iron 95 ug/dL (49-181)
[2024-05-01 13:05] LABS: Anion Gap 2 mmol/L (4-12); Blood Urea Nitrogen 15 mg/dL (9-20); Calcium 8.9 mg/dL (8.4-10.2); Carbon Dioxide 33 mmol/L (22-30); Chloride 105 mmol/L (98-107); Estimated Glomerular Filt Rate > 60; Glucose 100 mg/dL (65-110); Potassium 4.7 mmol/L (3.4-5.0); Sodium 140 mmol/L (137-145)
[2024-05-01 13:08] LABS: Percent Iron Saturation 31 % (20-50)
== END 2024-05-01 08:57 | disposition home or self-care (01) ==
LOC: ANHLAB 08:58
PROVIDERS: PCP Family Medicine; Visit Provider Internal Medicine Hematology & Oncology
DX: D50.9 Iron deficiency anemia, unspecified (principal)
CPT/HCPCS: 36415; 80048; 82607; 82728; 83540; 83550; 85025

== ENCOUNTER 2024-08-30 09:38 | Outpatient (CLI) | payer MEDICARE, SELFPAY ==
--- NOTE | ~2024-08-30 | US_ITS ---
Abdominal Sonogram: Real-time sonographic imaging of the abdomen was performed. Clinical History: Leukopenia Findings: The liver appears mildly echogenic with no evidence of mass lesion or bile duct dilatation . It measures 17.5 cm in length. Main portal vein demonstrates normal direction of flow. The spleen i s borderline enlarged. The gallbladder is well distended, and appears normal with no evidence of gal lstone or wall thickening. The common bile duct measures 5 mm. The visualized pancreas, aorta, and I VC are unremarkable. The right kidney measures 10.7 cm in length and the left kidney measures 12.0 c m. There is no hydronephrosis or renal calculus. 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 Impression: Probable diffuse fatty infiltration of liver, with associated mild hepatomegaly. Borderline splenomegaly. Reviewed, dictated and finalized at [facility]. Impression: Probable diffuse fatty infiltration of liver, with associated mild hepatomegaly . Borderline splenomegaly.
--- OUTSIDE RECORDS SUMMARY | 2024-08-30 10:09 | XMS_ITS | Clinical Summary ---
Author Organization [facility] Address [address] [place] [address] Care Team Providers Care Correspondent Name Role Phone Immanuel Mcallister MD Primary Care Provider Allergies Active Allergy Reactions Criticality Noted Date Comments Clindamycin-Benzoyl Peroxide Rash Low 12/09/2022 difficult swallowing Erythromycin Unknown 10/05/2023 Oxytetracycline Rash,Swelling Medium 03/26/2016 Penicillins Swelling High 03/26/2016 Sulfa (Sulfonamide Antibiotics) Rash Low 10/05/2023 Sulfasalazine Rash,Swelling Medium 03/26/2016 Medications atorvastatin (LIPITOR) 20 mg tablet Take 20 mg by mouth daily at bedtime. 02/09/2022 Active levothyroxine 75 mcg tablet Take 75 mcg by mouth. and Tuesday only 08/08/2023 Active levothyroxine 100 mcg tablet Take 100 mcg by mouth daily. Tuesday thru Tuesday Active omeprazole (PriLOSEC) 20 mg Capsule, Delayed Release(E.C.) Take 20 mg by mouth daily. Active psyllium (FIBER-CAP) 0.52 gram Capsule Take 1.04 Grams by mouth 2 times daily. Active cetirizine (ZyrTEC) 10 mg tablet Take 10 mg by mouth daily at bedtime. Active clopidogreL (PLAVIX) 75 mg Tablet Take 75 mg by mouth daily. 10/02/2023 10/02/19 25 Active tamsulosin (FLOMAX) 0.4 mg capsule Take 0.4 mg by mouth daily. Active Saccharomyces boulardii (FLORASTOR) 250 mg Capsule Take by mouth. Active Glucosamine Sulfate 1,000 mg Capsule Take 1,500 mg by mouth daily. Active glucosamine-cho ndroitin (ARTHX DS) 500-400 mg Capsule Take 2 Capsules by mouth daily. Active Fish Oil-Friedens-3 Fatty Acids 360-1,200 mg Capsule Take 1 Capsule by mouth. Active diazePAM (VALIUM) 2 mg tablet Take 2 mg by mouth every 6 hours as needed for Anxiety. Active finasteride (PROSCAR) 5 mg tablet Take 5 mg by mouth daily. Active ferrous sulfate 325 mg (65 mg iron) tablet Take 325 mg by mouth daily. Active Active Problems No known active problems Encounters Date Type Department Care Team Description 08/15/2024 External Device Data [facility] ABSTRACTION Provider, Abstract 08/04/2024 External Device Data [facility]STRACTION Provider, Abstract 08/04/2024 External Device Data [facility]STRACTION Provider, Abstract 07/18/2024 External Device Data [facility]STRACTION Provider, Abstract 06/21/2024 External Device Data [facility] ABSTRACTION Provider, Abstract from Last 3 Months Family History Medical History Relation Name Comments No Known Problems Brother No Known Problems Child 1 No Known Problems Child 2 No Known Problems Child 3 Heart Disease Father Tongue Cancer Father Diabetes Mother Heart Disease Mother Relation Name Status Comments Brother Alive Child 1 Alive Child 2 Alive Child 3 Alive Father Mother Social History Tobacco Use Types Packs/Day Years Used Date Smoking Tobacco: Former Cigarettes 2 3 Q uit: 05/30/1965 Smokeless Tobacco: Never Tobacco Cessation:Counseling Given: Not Answered Alcohol Use Standard Drinks/Week Comments Yes 0 (1 standard drink = 0.6 oz pur e alcohol) Socially Sex and Gender Information Value Date Recorded Sex Assigned at Not on file Legal Sex Male 4:07 PM CDT Gender Identity Not on file Sexual Orientation Not on file Last Filed Vital Signs Vital Sign Reading Time Taken Comments Blood Pressure 113/61 05/03/2024 10:07 AM [employer] Pulse 77 05/03/2024 10:07 AM [employer] Temperature 36.7 C (98 F) 05/03/2024 10:07 AM [employer] Respiratory Rate 15 05/03/2024 10:07 AM [employer] Oxygen Saturation 97% 05/03/2024 10:07 AM [employer] Inhaled Oxygen Concentration - - Weight 93.9 kg (207 lb) 05/03/2024 10:07 AM [employer] Height 170.2 cm (5' 7 ) 10/05/2023 11:20 AM CDT Body Mass Index 32.42 10/05/2023 11:20 AM CDT Plan of Treatment Upcoming Encounters Date Type Department Care Team (Late st Contact Info) Description 09/07/2024 10:00 AM CDT Office Visit [facility] Oncology and Hematology - Jose Juan [address] [facility] [address] [place] [address] Giovanni Montenegro MD [address] [place] [address] Health Maintenance Due Date Last Done Comments DTAP/TDAP/TD VACCINES (1 - Tdap) 1961 PNEUMOCOCCAL VACCINE 50+ YEA RS (2 of 2 - PPSV23) 2016 2015 RSV VACCINE (60+ or ) (1 - 1-dose 75+ series) 2017 INFLUENZA VACCINE (#1) 2023 02/12/2020 ZOSTER VACCINE Completed 05/12/2019, 02/25/2019 [place] [address] MEDICARE PART A AND B BCBS SUPP Care Teams Correspondent Relationship Specialty Start Date End Date Immanuel Mcallister MD [address] [place] [address] PCP - General Family Practice 10/05/23
--- OUTSIDE RECORDS SUMMARY | 2024-08-30 10:09 | XMS_ITS | Referral Summary ---
Author Organization [facility] [address] [facility] [address] Address [address] [place] [address] Care Team Providers Care Fence Setter Name Role Phone Immanuel Mcallister MD Primary Care Provider [phone] Encounters Date Type Department Care Team Description 07/18/2024 9:00 AM OB TECH Ancillary Procedure [facility] [address] [place] [id number] Cardiac pacemaker in situ [Z95.0] (Primary Dx); Paroxysmal atrial fibrillation (HCC); SSS (sick sinus syndrome) (HCC) from Last 3 Months Allergies Active Allergy Reactions Criticality Noted Date Comments Clindamycin-Benzoyl Peroxide Other (See comments) Low 12/09/2022 difficult swallowing Dog Dander Shortness of breath,Sneezing High 09/20/2023 Erythromycin Oxytetracycline Rash,Swelling Medium 03/26/2016 Penicillins Swelling High 03/26/2016 Sulfa (Sulfonamide Antibiotics) Sulfasalazine Rash,Swelling Medium 03/26/2016 Medications glucosamine-miriam droit-vit C-Mn (GLUCOSAMINE CHONDROITIN MAXSTR) 500-400 mg capsule take 1 by Oral route 2 times every day 0 0 4 Active B-complex with vitamin C (VITAMIN B COMPLEX WITH C) capsule TAKE 1 BY MOUTH ONCE A DAY 0 0 4 Active diazePAM (VALIUM) 2 mg tablet take 1 tablet by oral route every day 0 0 4 Active Additional Information Patient taking differently:2 mgoral Daily, Reported on 05/17/2024 tamsulosin (FLOMAX) 0.4 mg extended release capsule Take 1 capsule (0.4 mg total) by mouth daily before lunch Active lactobacillus combo no.6 (PROBIOTIC COMPLEX ORAL) Take 1 capsule by mouth every morning Active finasteride (PROSCAR) 5 mg tablet Take 1 tablet (5 mg total) by mouth nightly 9 Active carboxymethylcel lulose (REFRESH TEARS) 0.5 % ophthalmic solution Administer 1 drop into both eyes as needed Active atorvastatin (LIPITOR) 20 mg tablet TAKE 1 TABLET BY MOUTH EVERYDAY AT BEDTIME 90 tablet 2 2 Active Additional Information Patient taking differently: 20 mg oral Nightly, Reported on 09/20/2023 triamcinolone (KENALOG) 0.1 % cream Apply 1 g topically 2 (two) times a day as needed APPLY TO AFFECTED AREA 2 Active psyllium 0.52 gram capsule Take 2 capsules (1.04 g total) by mouth 2 (two) times a day Active levothyroxine (SYNTHROID) 100 mcg tablet 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 100 mcg daily and an additional 75 mcg on Tuesday and Tuesday Active levothyroxine (SYNTHROID) 75 mcg tablet Take 1 tablet (75 mcg total) by mouth as directed Takes on Tuesday & Tuesday only 4 Active cetirizine (ZyrTEC) 10 mg tablet Take 1 tablet (10 mg total) by mouth nightly Active clopidogreL (PLAVIX) 75 mg tabletIndication s:coronary artery disease Take 1 tablet (75 mg total) by mouth daily 90 tablet 3 4 10/02/19 25 Active omeprazole 20 mg tablet,delayed release (DR/EC) Take 1 tablet (20 mg total) by mouth 2 (two) times a day 4 Active ferrous sulfate 325 mg (65 mg of elemental iron) tablet Take 1 tablet (325 mg total) by mouth daily Active metoprolol tartrate (LOPRESSOR) 25 mg immediate release tablet Take 1 tablet (25 mg total) by mouth 2 (two) times a day 60 tablet 11 4 11/23/19 25 Active omega-3 fatty acids/fish oil (OMEGA 3 FISH OIL ORAL) Take 1 tablet by mouth 2 (two) times a day Active Active Problems Problem Noted Date Diagnosed Date Presence of Amulet left atrial appendage closure device 09/30/2023 Paroxysmal atrial fibrillation 09/30/2023 Complete heart block 08/31/2023 Assessment & Plan (08/31/2023 11:04 AM CDT): S/p dual chamber pacemaker. Excellent device function. Now 100% pacing burden. 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 Dx; H/O Sinus Arrest, Syncope, RBBB, Parox Afib/Aflutter. DOI 06/25/2021-Aditi (EP), Felix (CARD). [facility] remote monitoring. ILR was not explanted. Sinus node dysfunction 06/16/2021 Assessment & Plan (08/25/2022 12:58 PM CDT): S/p dual chamber pacemaker. Excellent device function. --Continue remote device f/u quarterly via [facility] Assessment & Plan (06/16/2021 12:56 PM OB TECH): Abrupt syncope with associated 30 second pause confirmed on ILR. Mechanism is difficult to discern from ILR tracing due to baseline artifact and suspension of electrograms, but suspect this was a conversion pause after termination of an AF episode. Cannot exclude paroxysmal AV block. I reviewed these findings with the patient. I have recommended pacemaker implantation for symptomatic bradycardia with prolonged pause and korina syncope. We reviewed procedural steps, risks/benefits, recovery in detail. He agrees and wishes to proceed. --Dual chamber pacemaker implantation w/anesthesia (Medtronic) --Hold metoprolol until pacemaker is in place --I instructed the patient not to drive until pacemaker is in place. H/O syncope 01/13/2021 Dry eye syndrome of both eyes 12/23/2020 Assessment & Plan (12/23/2020 2:54 PM CDT): Hx ABMD/ALEKSANDR OD > OS: --controlled on Rx --> Cont Refresh Optive prn. --> Cont AM eyelid hot compresses. --> Cont omega-3 po bid. (--pt also on synthroid) Atrial flutter 02/22/2020 Status post placement of implantable loop record er 01/17/2020 Overview (01/17/2020): Medtronic Implantable Loop Recorder, Dx; Syncope, PAF. DOI 01/16/2020-[place]. [facility] remote monitoring. Syncope 12/18/2019 Assessment & Plan (12/02/2020 2:09 PM CDT): No pauses/bradycardia on ILR. No clear arrhythmic cause. --Continue ILR monitoring. Gross hematuria 03/02/2019 Coronary artery disease invo lving [place] coronary artery of [place] heart without angina pectoris 03/02/2019 Abnormal stress test 10/24/2018 Central retinal vein occlusi on with macular edema of right eye 11/17/2017 Overview (09/05/2023): S/P CRVO/ME OD, s/p multiple NICOLE's (around q 4 to 5 mo): Assessment & Plan (05/17/2024 10:27 AM OB TECH): On PRN treatment regimen (can often go about 4-5 months between injections). Last NICOLE was 05/26/23 and he remains without macular edema or proliferative disease today. Will observe and have him return to optometry in 4-6 months. Back to [facility] as needed. Assessment & Plan (02/09/2024 10:29 AM CDT): On PRN treatment regimen (can often go about 4-5 months between injections). Last NICOLE was 05/26/23 and he remains without macular edema today. Will observe and have him return in about 12 weeks for DFE OD, OCT mac OD. Assessment & Plan (11/30/2023 11:15 AM CDT): On PRN treatment regimen (can often go about 4-5 months between injections). Last NICOLE was 05/26/23 and he remains without macular edema today. Will observe and have him return in about 10 weeks for DFE OD, OCT mac OD. Assessment & Plan (09/05/2023 11:38 AM CDT): On PRN treatment regimen (can often go about 4-5 months between injections). Last NICOLE was 05/26/23 and he remains without macular edema today. Will observe and have him return in about 8-9 weeks for DFE OD, OCT mac OD. Assessment & Plan (07/07/2023 10:27 AM OB TECH): On PRN treatment regimen (can often go about 4-5 months between injections). Last NICOLE was 05/26/23 and he remains without macular edema today. Will observe and have him return in about 8-9 weeks for DFE OD, OCT mac OD. Assessment & Plan (05/26/2023 10:55 AM OB TECH): On PRN treatment regimen. Signs of active disease is present in the RIGHT eye, recommend: EYELKINA,RIGHT eye(s) today. Risks benefits and alternatives for injecting were reviewed with the patient. They include infection, bleeding, damage to the eye, loss of vision, the need for additional injections, glaucoma, retinal detachment, tears and potential systemic effects. No guarantees were made and the patient wishes to proceed. Assessment & Plan (04/13/2023 11:44 AM OB TECH): Getting shot about every 4 months - no ME today. Last shot 10/19 but given stability can continue to observe today. . Assessment & Plan (02/07/2023 12:01 PM CDT): Getting shot about every 4 months - no ME today, agreed to observation, will re- eval in 8 weeks. Assessment & Plan (10/07/2022 10:46 AM CDT): Receiving injections about every 3-4 months. Today w/ fluid re-accumulation. Will proceed with NICOLE today right eye (OD) and will re-evaluate in 4 months. R/B/A reviewed - pt wishes to proceed. Assessment & Plan (06/03/2022 12:01 PM OB TECH): Receiving injections about every 3-4 months. Today w/ fluid re-accumulation though vision is stable. Will proceed with NICOLE today right eye (OD) and will re- evaluate in 8-12 weeks. Assessment & Plan (02/22/2022 11:31 AM CDT): Receiving injections about every 3-4 months,no macular edema today. Offered repeat injection with Eylea to the right eye today. Pt wished observation, will re-eval in 3 months. Pt will monitor vision at home with AG. Assessment & Plan (11/23/2021 11:11 AM CDT): Receiving injections about every 3-4 months, has a trace amount of macular edema today. Recommend repeat injection with Eylea to the right eye today. We will re-evaluate roughly 3 months time. Risks, benefits, alternatives reviewed the patient. Patient wished to proceed. Assessment & Plan (09/16/2021 11:14 AM CDT): Getting injections about every 3-4 months. Last injection was last month, with resolution of the intraretinal fluid, recommend observation. Will re-evaluate in roughly 8 weeks Assessment & Plan (07/30/2021 10:30 AM OB TECH): Last NICOLE 11/26/20 Mild change in VA, ME about the same - will re-inject Eylea OD. R/B/A reviewed, pt wishes to proceed. Assessment & Plan (06/22/2021 11:29 AM OB TECH): Previously required NICOLE q 4-5 months Today with trace fluid. Patient prefers PRN therapy. He is scheduled for pacemaker placement on . I recommended he undergo the procedure and see us in roughly a month's time, if the macular edema worsens we will consider repeat injection. Assessment & Plan (03/04/2021 11:52 AM CDT): Previously required NICOLE q 4-5 months Today with no fluid. Patient prefers PRN therapy. Will re-eval in 3 months. Assessment & Plan (12/23/2020 2:51 PM CDT): Sees Carrie q4 mo, getting injections OD Assessment & Plan (11/26/2020 10:58 AM CDT): Previously required NICOLE q 4-5 months Today with mild recurrence of fluid and patient has noticed slight subjective visual record changer tester past 1-2 months. Last injection was 04/10/20 (6.5 months). Patient prefers PRN therapy. Given fluid and vision changes, recommend treatment today. Follow up in 4 months. Assessment & Plan (07/31/2020 10:52 AM OB TECH): Previously required NICOLE q 4-5 months Today with no ME, last injection aprox 4 months ago We discussed p.r.n. therapy versus treat and extend. Patient wishes PRN tx, however he would like re-evaluation in roughly 3 months time. Assessment & Plan (04/10/2020 10:32 AM OB TECH): Previously required NICOLE q 4-5 months Today with worse intraretinal fluid and vision Recommend repeat NICOLE today with f/u in 4 months. Risks, benefits, alternatives reviewed with patient. Patient wished to proceed with Eylea to the right eye today. Assessment & Plan (01/31/2020 11:00 AM CDT): Last injection was roughly 3 months ago, appears to be getting injections every 4-5 months. Fortunately there is no macular edema today and I think observational as necessary. I have asked her return to see us roughly 2 months. Assessment & Plan (10/25/2019 10:09 AM CDT): Previously required NICOLE q 4-5 months Today with worse intraretinal fluid and vision Last NICOLE ~7 mo ago Consider repeat NICOLE today with f/u in 4 months. Risks, benefits, alternatives reviewed with patient. Patient wished to proceed with Eylea to the right eye today. Assessment & Plan (07/05/2019 11:13 AM OB TECH): Previously required NICOLE q 4-5 months, but had recurrence last at 2 months . Last NICOLE ~3.5 mo ago Dry today with stable BCVA . Consider repeat NICOLE today with f/u in 4 months. Assessment & Plan (03/26/2019 10:30 AM CDT): Has been requiring injections every 4-5 months. Today has recurrent macular edema and we recommend repeat injection with Eylea. Risks, benefits, alternatives reviewed with patient. Patient wished to proceed. We will re-evaluate roughly 3 months time. Assessment & Plan (01/22/2019 11:16 AM CDT): Dry today after injection 09/18/18 Previously had recurrence of intraretinal fluid ~[id number] after injections. I offered an appointment next month however patient would like to spread out appointment if possible. He would like to return in 8 weeks time. He will call us if things worsen before that appointment. Assessment & Plan (11/20/2018 10:15 AM CDT): Dry today after injection last visit 9 weeks ago 09/18/18 Usually gets recurrence of intraretinal fluid ~[id number] after injections -follow up in another 9-10 weeks for possible injection. Assessment & Plan (09/18/2018 11:20 AM CDT): Mild recurrence of macular edema in the right eye, his recurrences of been occurring every 4-6 months. We will reinject with Eylea today, and re-evaluate in 2 months time. Risks, benefits, alternatives to injections reviewed with patient and he wishes to proceed. Assessment & Plan (07/24/2018 10:57 AM OB TECH): Without macular edema today. Patient has been averaging injection every 5 months or so. We will re-evaluate in roughly 8 weeks time. Assessment & Plan (06/12/2018 10:53 AM OB TECH): Dry today; previously went from 11/17/17 until 05/08/18 (24.5 weeks) without needing an injection and had recurred on 05/08/18 now status post (s/p) NICOLE that day -dry today, continue to monitor. Assessment & Plan (05/08/2018 11:23 AM OB TECH): Now with recurrent macular edema right eye, recommend repeat Eylea. Risks, benefits, alternatives were discussed with patient. Patient wished to proceed. Assessment & Plan (03/20/2018 11:43 AM CDT): Stable today, recommend observation. Assessment & Plan (02/02/2018 2:44 PM CDT): No NV, stably resolved edema. Observe without treatment. Last injection 11/17/17. RTC 6 weeks. Assessment & Plan (12/29/2017 2:03 PM CDT): Resolved CME today. Last NICOLE 11/17/2017 (prior to that 06/20/2017) Recommend observation today, RTC 4-6 weeks repeat DFEx OD, mac OCT OD. Assessment & Plan (11/17/2017 2:25 PM CDT): Recurrent cystoid macular edema (CME) today. Last NICOLE 06/20/2017 Recommend NICOLE right eye (OD) today & RTC 8-10 wks. Chronic anticoagulation 10/10/2017 Venous thrombosis of lower extremity 04/14/2016 Overview (09/03/2016): Venous thrombosis of lower extremity Persistent atrial fibrillation 05/05/2015 Assessment & Plan (08/31/2023 11:04 AM CDT): Now persistent AF with 100% burden since last check. Spontaneous cerebellar hemorrhage while on Xarelto- agree with plans for LAAO. --LAAO per Dr. Morelos --Continue Xarelto, solo-LAAO management per Dr. Morelos --Continue metoprolol 50 mg BID Assessment & Plan (08/25/2022 12:58 PM CDT): Progressing to persistent AF. Mostly asymptomatic. Rates controlled. In absence of significant symptoms, would continue rate control for now. If symptoms emerge, could consider AAD therapy or catheter ablation. --Continue Xarelto 20 mg daily --Continue metoprolol 25 mg BID Assessment & Plan (06/16/2021 12:54 PM OB TECH): 6% burden, Minimally symptomatic. Complicated by sinus node dysfunction with pauses/syncope. --Hold metoprolol for now. Will restart after ppm in place. --Continue Xarelto 20 mg daily. Hold for 3 days prior to procedure. Assessment & Plan (12/02/2020 2:08 PM CDT): 7% atrial fibrillation burden. Mild symptoms. Patient is not particularly bothered by the events. He prefers a minimalist strategy for now. Will plan to proceed with rate control strategy. I again discussed the possibility of rhythm control with antiarrhythmic drug therapy or catheter ablation. The patient understands and will let us know if his symptoms worsen. CHADS2 Vasc score of 3; recommend indefinite anticoagulation. --Continue metoprolol 25 mg PO BID. --Continue Xarelto 20 mg daily. --F/u 6 months. Bifascicular block 05/05/2015 Overview (09/03/2016): Bifascicular block Assessment & Plan (12/02/2020 2:08 PM CDT): RBBB + LAFB. No pauses or AV block on monitor. --Continue ILR remote monitoring. Adiposity 05/05/2015 Overview (09/03/2016): Obesity (BMI 30.0-34.9) Palpitations 01/09/2015 Overview (09/03/2016): Palpitations Stable central retinal vein occlusion of right e ye 09/09/2014 Vitreous syneresis of both eyes 09/09/2014 Pseudophakia of both eyes 07/31/2012 Overview (12/23/2020): Phaco/IOL both eyes (OU) s/p YAG cap OU Assessment & Plan (12/23/2020 2:57 PM CDT): Phaco/IOL both eyes (OU) s/p YAG cap OU Hypothyroidism (acquired) 07/13/2010 Gastroesophageal reflux disease 07/13/2010 Resolved Problems Problem Noted Date Diagnosed Date Resolved Date Epiretinal membrane, right eye 11/16/2017 12/23/2020 Assessment & Plan (12/29/2017 1:57 PM CDT): Mild. Recommend observation. Assessment & Plan (11/17/2017 2:25 PM CDT): Mild. Recommend observation. Macular edema, cystoid, right 11/16/2017 12/23/2020 After-cataract with vision obscured 08/20/2016 12/23/2020 Benign hypertension 05/05/2015 03/02/20 19 Overview (09/03/2016): HTN (hypertension), benign Immunizations Immunization Administration Dates Next Due Influenza, Quadrivalent, Hig h Dose, Preservative Free, Intrr 02/12/2020 Moderna SARS-CoV-2 Monovalent Vaccination (12+ Y RS) 08/19/2020,07/22/2020 Pneumococcal Conjugate PCV 13 2015 ZOSTER Recombinant 05/12/2019,02/25/2019 Social History Tobacco Use Types Packs/Day Years Used Date Smoking Tobacco: Former Cigarettes 0 05/30/1962 - 05/30/1965 Pipe Cigars Smokeless Tobacco: Never Tobacco Cessation:Counseling Given: Not Answered Alcohol Use Standard Drinks/Week Comments Yes 0 (1 standard drink = 0.6 oz pur e alcohol) AUDIT-C Answer Date Recorded Q1: How often do you have a drink containing alcohol? Monthly or less 02/09/2024 Q2: How many drinks containi ng alcohol do you have on a typical day when you are drinking? Patient does not drink Q3: How often do you have si x or more drinks on one occasion? Never 02/09/2024 Personal Safety Answer Date Recorded Have you ever been in or are you currently in a harmful physical or emotional relationship or is someone making you feel afraid or unsafe? Denies 12/09/2023 Sex and Gender Information Value Date Recorded Sex Assigned at Male 08/03/2018 11:22 AM OB TECH Legal Sex Male 3:45 AM OB TECH Gender Identity Male 08/03/2018 11:22 AM OB TECH Sexual Orientation Straight 08/03/2018 11 :23 AM OB TECH Occupation Industry Job Start Date Job End Date Retired Not on file Not on file Not on file Last Filed Vital Signs Vital Sign Reading Time Taken Comments Blood Pressure 116/59 12/09/2023 11:38 AM CDT Pulse 51 12/09/2023 11:38 AM CDT Temperature 36.6 C (97.8 F) 12/09/2023 9:37 AM CDT Respiratory Rate 20 12/09/2023 9:37 AM CDT Oxygen Saturation 94% 12/09/2023 11:38 AM CDT Inhaled Oxygen Concentration - - Weight 93.4 kg (206 lb) 12/09/2023 9:37 AM CDT Height 170.2 cm (5' 7 ) 12/09/2023 9:37 AM CDT Body Mass Index 32.26 12/09/2023 9:37 AM CDT Plan of Treatment Not on file Medical Devices Implanted Type Area English Faculty Member Device Identifier Shelf Expiration Date Model / Serial / Lot [employer] Vascade Mvp 6-12fr Venous Closure [id number] - [id number] Implanted:Qty: 1 on 09/30/2023 by Santiago Morelos MD at [facility] Right: Femoral Vein [employer] 06/27/2025 [id number] [id number] / / [id number] Endoprosthesis Endoprosthesis Bilateral: Knee Description:Bilateral knee r eplacements Medtronic Implantable Loop Recorder- [id number] Implanted:01/15 by Brian Washington MD (Quantity not on file) Implantable Loop Recorder Chest Medtronic Cardiac Rhythm Mgmt [id number] / [id number] / Medtronic Cardiac Rhythm Mgmt 5076-58 Capsurefix Novus 6.2fr 2mm 58cm Bipolar Screw In Implantable - [id number] - [id number] Implanted:Qty: 1 on 06/25/2021 by Shaka Pennington III, MD at [facility] Lead Medtronic Inc [id number] 02/19/2023 5076-58 / [id number] / Medtronic Cardiac Rhythm Mgmt 5076-52 Capsurefix Novus 6.2fr 2mm 52cm Bipolar Screw In Implantable Latex Free - [id number] - [id number] Implanted:Qty: 1 on 06/25/2021 by Shaka Pennington III, MD at [facility] Lead Medtronic Inc [id number] 04/03/2023 5076-52 / [id number] / [employer] Percutaneous Transcatheter Amplatzer Amulet 22mm [id number]-[id number] - [id number] Implanted:Qty: 1 on 09/30/2023 by Santiago Morelos MD at [facility] Left Atrial Appendage Occluder Left: Atrial Appendage [employer] 09/27/2027 9-ACP2- [id number] / / [id number] Medtronic Cardiac Rhythm Mgmt [id number] [place] S Mri Surescan 50.8x46.6mm 2 Chamber 7.4mm Pacemaker 22.5gm - [id number] - [id number] Implanted:Qty: 1 on 06/25/2021 by Shaka Pennington III, MD at [facility] Pacemaker Medtronic Inc [id number] 10/24/2022 [id number] / [id number] / [employer] Device Clsr Perclose Prostyle Sut-Mediatd Closure-Repair Sys [id number] - [id number] Implanted:Qty: 1 on 09/30/2023 by Santiago Morelos MD at [facility] Right: Femoral Vein [employer] 07/27/2025 [id number] / / [id number] Procedures Procedure Name Priority Date/Time Associated Diagnosis Comments DEVICE CHECK - REMOTE Routine 07/18/2024 11:03 AM OB TECH Paroxysmal atrial fibrillation (HCC) SSS (sick sinus syndrome) (HCC) CT CHEST ABDOMEN PELVIS W CONTRAST Schedule Routine, Read Routine (OP Routine) 09/15/2022 1:18 PM CDT Brain mass from Last 3 Months or Most Recently Relevant to Health Maintenance Results * DEVICE CHECK - REMOTE (07/18/2024 11:03 AM OB TECH) Anatomical Region Laterality Modality Other Narrative 07/24/2024 12:53 PM OB TECH Medtronic Sumi Dual Pacemaker. Dx; H/O Sinus Arrest, Syncope, RBBB, Parox Afib/Aflutter-Xarelto. DOI 06/25/2021-[facility] remote monitoring. ILR was not explanted. Routine AAI<>DDD Pacemaker Remote. Transmission attached. Battery status-3.00V, 10.3 years remaining to DARRIUS. Stable lead impedances, pacing and sensing thresholds. Presenting rhythm: AFib Vpaced. AP-<0.1 %, ELECTRONIC PLOTTING SYSTEM OPERATOR-100 %. AF [place] 100%. No Ventricular high rate episodes noted. Medication: Plavix, Lopressor. Left atrial appendage closure was performed on 09/30/2023. Follow up: carelink remote 10/24/2024. Office device f/u and ROV with Dr Pennington scheduled 09/12/2024. Ana Fraga, RN us Santiago Morelos MD [facility] PROCEDURES F inal Result * CT Chest Abdomen Pelvis W Contrast (09/15/2022 1:18 PM CDT) Anatomical Region Laterality Modality Body N/A Computed Tomogra phy 09/15/2022 4:28 PM CDT Impressions 09/15/2022 4:28 PM CDT 1. No evidence of primary malignancy in the chest, abdomen or pelvis 2. Mild splenomegaly. The radiology attending physician has personally reviewed this study, and had reviewed and/or edited this written report and agrees with it. Electronically signed by: MD Monika Birmingham 09/15/2022 4:28 PM CDT EXAMINATION: Computed tomography of the chest, abdomen and pelvis with intravenous contrast HISTORY: Brain mass TECHNIQUE: Transaxial computed tomographic images of the chest, abdomen and pelvis were obtained with intravenous contrast according to the standard protocol after the uneventful administration of 100 mL Opti-Ray 350 intravenous contrast. COMPARISON: None FINDINGS: Chest: Left chest wall pacemaker leads terminate in the right atrium and right ventricle. There is mild bibasilar atelectasis versus scarring. There is a 2mm nodule in the right lung base (series 4, image 94). No focal consolidation, pneumothorax, or pleural effusion. There is no adenopathy throughout the thorax. There is no central pulmonary embolism. The aorta and its branches are normal in course and contour. Heart size is normal. Coronary calcifications noted. Trace pericardial effusion. Abdomen/Pelvis: The liver is normal in size. There is no focal hepatic lesion. There is no intra or extrahepatic biliary ductal dilatation. There is cholelithiasis without evidence of acute cholecystitis. The portal vein is patent. The stomach, adrenal glands are normal. Mild splenomegaly, 14.5 cm in craniocaudal extent. There is mild fatty atrophy of the pancreas. The kidneys symmetrically enhance and there is no focal renal lesion. Nonobstructing punctate stone in the left kidney. There is no hydronephrosis. The urinary bladder appears normal. The bowel is normal caliber. Postoperative changes of appendectomy. There is colonic diverticulosis without evidence of acute diverticulitis. There is no free air or fluid. There is no mesenteric, retroperitoneal or pelvic lymphadenopathy. No vascular abnormalities. The prostate gland is enlarged. Cystic focus at the bladder base that may be cystic degeneration of a prostate BPH nodule. There is no fracture or suspicious osseous lesion. Hemangioma noted within the L1 vertebral body. Multilevel degenerative changes throughout the visualized spine. Procedure Note Lexii Perez MD - 09/15/2022 EXAMINATION: Computed tomography of the chest, abdomen and pelvis with intravenous contrast HISTORY: Brain mass TECHNIQUE: Transaxial computed tomographic images of the chest, abdomen and pelvis were obtained with intravenous contrast according to the standard protocol after the uneventful administration of 100 mL Opti-Ray 350 intravenous contrast. COMPARISON: None FINDINGS: Chest: Left chest wall pacemaker leads terminate in the right atrium and right ventricle. There is mild bibasilar atelectasis versus scarring. There is a 2mm nodule in the right lung base (series 4, image 94). No focal consolidation, pneumothorax, or pleural effusion. There is no adenopathy throughout the thorax. There is no central pulmonary embolism. The aorta and its branches are normal in course and contour. Heart size is normal. Coronary calcifications noted. Trace pericardial effusion. Abdomen/Pelvis: The liver is normal in size. There is no focal hepatic lesion. There is no intra or extrahepatic biliary ductal dilatation. There is cholelithiasis without evidence of acute cholecystitis. The portal vein is patent. The stomach, adrenal glands are normal. Mild splenomegaly, 14.5 cm in craniocaudal extent. There is mild fatty atrophy of the pancreas. The kidneys symmetrically enhance and there is no focal renal lesion. Nonobstructing punctate stone in the left kidney. There is no hydronephrosis. The urinary bladder appears normal. The bowel is normal caliber. Postoperative changes of appendectomy. There is colonic diverticulosis without evidence of acute diverticulitis. There is no free air or fluid. There is no mesenteric, retroperitoneal or pelvic lymphadenopathy. No vascular abnormalities. The prostate gland is enlarged. Cystic focus at the bladder base that may be cystic degeneration of a prostate BPH nodule. There is no fracture or suspicious osseous lesion. Hemangioma noted within the L1 vertebral body. Multilevel degenerative changes throughout the visualized spine. IMPRESSION: 1. No evidence of primary malignancy in the chest, abdomen or pelvis 2. Mild splenomegaly. The radiology attending physician has personally reviewed this study, and had reviewed and/or edited this written report and agrees with it. Electronically signed by: Lexii Perez MD Yuriy Page MD IMG CT PROCEDURES Final Res ult from Last 3 Months or Most Recently Relevant to [place] [address] MEDICARE [facility]LY [facility] MEDICARE [facility] MEDICARE SUPPLEMENT MEDICARE [facility] Advance Directives For more information, please contact: [phone] * Full Code (Latest Code Status on File) Date Activated Date Inactivated Comments 06/25/2021 12:44 PM 06/25/2021 8:27 PM Care Teams Fence Setter Relationship Specialty Start Date End Date Immanuel Mcallister MD [address] [place] [address] PCP - General Family Medicine 07/28/23
--- OUTSIDE RECORDS SUMMARY | 2024-08-30 10:09 | XMS_ITS | Clinical Summary ---
Author Organization [facility] [address] [facility] [address] Address [address] [place] [address] Care Team Providers Care Equipment Manager Name Role Phone Immanuel Mcallister MD Primary Care Provider [phone] Allergies Active Allergy Reactions Criticality Noted Date [...] mcg tablet Take 75 mcg by mouth color paste mixing supervisor before breakfast 100 mcg daily and an [...] pacemaker in situ 06/30/2021 Overview (06/30/2021): Medtronic Alston Dual Pacemaker. Dx; H/O Sinus Arrest, Syncope, RBBB, Parox Afib/Aflutter. DOI 06/25/2021-Aditi (EP), Felix (CARD). [facility] remote monitoring. ILR was not explanted. Sinus node dysfunction 06/16/2021 Assessment & Plan (08/25/2022 12:58 PM CDT): S/p dual chamber pacemaker. Excellent device function. --Continue remote device f/u quarterly via [facility] Assessment & Plan (06/16/2021 12:56 PM EDUCATIONAL GUIDANCE COUNSELOR): Abrupt syncope with associated 30 second pause [...] Implantable Loop Recorder, Dx; Syncope, PAF. DOI 01/16/2020-[place]. [facility]link remote monitoring. Syncope 12/18/2019 Assessment & Plan (12/02/2020 2:09 PM CDT): No pauses/bradycardia on ILR. No clear arrhythmic cause. --Continue ILR monitoring. 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 Assessment & Plan (07/07/2023 10:27 AM EDUCATIONAL GUIDANCE COUNSELOR): On PRN treatment regimen (can often go about 4-5 months between injections). Last NICOLE was 05/26/23 and he remains without macular edema today. Will observe and have him return in about 8-9 weeks for DFE OD, OCT mac OD. Assessment & Plan (05/26/2023 10:55 AM EDUCATIONAL GUIDANCE COUNSELOR): On PRN treatment regimen. Signs of active disease is present in the RIGHT eye, recommend: EYLEA,RIGHT eye(s) today. Risks benefits and alternatives for injecting were reviewed with the patient. They include infection, bleeding, damage to the eye, loss of vision, the need for additional injections, glaucoma, retinal detachment, tears and potential systemic effects. No guarantees were made and the patient wishes to proceed. Assessment & Plan (04/13/2023 11:44 AM EDUCATIONAL GUIDANCE COUNSELOR): Getting shot about every 4 months - [...] proceed. Assessment & Plan (06/03/2022 12:01 PM EDUCATIONAL GUIDANCE COUNSELOR): Receiving injections about every 3-4 months. Today [...] weeks Assessment & Plan (07/30/2021 10:30 AM EDUCATIONAL GUIDANCE COUNSELOR): Last NICOLE 11/26/20 Mild change in VA, ME about the same - will re-inject Eylea OD. R/B/A reviewed, pt wishes to proceed. Assessment & Plan (06/22/2021 11:29 AM EDUCATIONAL GUIDANCE COUNSELOR): Previously required NICOLE q 4-5 months Today [...] Assessment & Plan (12/23/2020 2:51 PM CDT): Dajuans KRao q4 mo, getting injections OD Assessment & Plan (11/26/2020 10:58 AM CDT): Previously required NICOLE q 4-5 months Today with mild recurrence of fluid and patient has noticed slight subjective visual business change manager past 1-2 months. Last injection was 04/10/20 (6.5 months). Patient prefers PRN therapy. Given fluid and vision changes, recommend treatment today. Follow up in 4 months. Assessment & Plan (07/31/2020 10:52 AM EDUCATIONAL GUIDANCE COUNSELOR): Previously required NICOLE q 4-5 months Today with no ME, last injection aprox 4 months ago We discussed p.r.n. therapy versus treat and extend. Patient wishes PRN tx, however he would like re-evaluation in roughly 3 months time. Assessment & Plan (04/10/2020 10:32 AM EDUCATIONAL GUIDANCE COUNSELOR): Previously required NICOLE q 4-5 months Today [...] today. Assessment & Plan (07/05/2019 11:13 AM EDUCATIONAL GUIDANCE COUNSELOR): Previously required NICOLE q 4-5 months, but [...] 09/18/18 Previously had recurrence of intraretinal fluid ~s8novago after injections. I offered an appointment next month however patient would like to spread out appointment if possible. He would like to return in 8 weeks time. He will call us if things worsen before that appointment. Assessment & Plan (11/20/2018 10:15 AM CDT): Dry today after injection last visit 9 weeks ago 09/18/18 Usually gets recurrence of intraretinal fluid ~f1zzeuya after injections -follow up in another 9-10 [...] proceed. Assessment & Plan (07/24/2018 10:57 AM EDUCATIONAL GUIDANCE COUNSELOR): Without macular edema today. Patient has been averaging injection every 5 months or so. We will re-evaluate in roughly 8 weeks time. Assessment & Plan (06/12/2018 10:53 AM EDUCATIONAL GUIDANCE COUNSELOR): Dry today; previously went from 11/17/17 until 05/08/18 (24.5 weeks) without needing an injection and had recurred on 05/08/18 now status post (s/p) NICOLE that day -dry today, continue to monitor. Assessment & Plan (05/08/2018 11:23 AM EDUCATIONAL GUIDANCE COUNSELOR): Now with recurrent macular edema right eye, [...] BID Assessment & Plan (06/16/2021 12:54 PM EDUCATIONAL GUIDANCE COUNSELOR): 6% burden, Minimally symptomatic. Complicated by sinus [...] obscured 08/20/2016 12/23/2020 Benign hypertension 05/05/2015 03/02/20 Overview (09/03/2016): HTN (hypertension), benign Encounters Date Type Department Care Team Description 07/18/2024 9:00 AM EDUCATIONAL GUIDANCE COUNSELOR Ancillary Procedure [facility] [address] [place] [id number] Cardiac pacemaker in situ [Z95.0] (Primary Dx); Paroxysmal atrial fibrillation (HCC); SSS (sick sinus syndrome) ([facility]) from Last 3 Months Immunizations Immunization Administration Dates Next Due Influenza, Quadrivalent, Hig h Dose, Preservative Free, Intrr 02/12/2020 Moderna SARS-CoV-2 Monovalent Vaccination (12+ Y RS) 08/19/2020,07/22/2020 Pneumococcal Conjugate PCV 13 2015 ZOSTER Recombinant 05/12/2019,02/25/2019 Surgical History Surgery Date Site/Laterality Comments CATARACT EXTRACTION Bilateral CARDIAC CATHETERIZATION TOTAL KNEE ARTHROPLASTY Bilateral Partial APPENDECTOMY INSERT / REPLACE / REMOVE PACEMAKER Install JOINT REPLACEMENT 2013 CHOLECYSTECTOMY TONSILLECTOMY Medical History Medical History Date Comments Hx Other Medical HTN, allergies, right visual loss, hypothyroidism,; Comments: [facility] 04/08/2014 - Hx Other Medical right femur bon e growth removal; Comments: [facility] 04/08/2014 - CRVO (central retinal vein o cclusion) ([facility]) Central retinal vein occlusi on of right eye (HCC) Arrhythmia Coronary artery disease Hyperlipidemia Hypertension GERD (gastroesophageal reflux disease) 1975 Cataract Glaucoma 1990 Heart disease Thyroid disease 1972 Bifascicular block 04/2015 Abnormal stress test 09/2018 Persistent atrial fibrillation (HCC) 04/2015 Atrial fibrillation ([facility]) 2019 Dizziness of unknown etiology 09/20/2023 ov er past 2 months Hiatal hernia Asthma Arthritis Family History Medical History Relation Name Comments Cancer Father Lazaro Mayo Heart attack Father Lazaro Mayo Myocardial inf arction; Heart disease Father Lazaro Mayo Hypertension Father Lazaro Mayo Diabetes Mother Alexandrea Diabetes mellit us; Heart disease Mother Alexandrea Hypertension Mother Alexandrea Cancer Paternal Grandfather Lazaro Hernandez Stroke Paternal Grandfather Lazaro Hernandez Heart disease Paternal Grandmother Nelida Amblyopia Neg Hx Blindness Neg Hx Cataracts Neg Hx Fuchs' dystrophy Neg Hx Glaucoma Neg Hx Macular degeneration Neg Hx Retinal detachment Neg Hx Strabismus Neg Hx Thyroid disease Neg Hx Relation Name Status Comments Father Lazaro Mayo Mother Alexandrea Paternal Grandfather Lazaro Hernandez Paternal Grandmother Nelida Social History Tobacco Use Types Packs/Day Years [...] Sex Assigned at Male 08/03/2018 11:22 AM EDUCATIONAL GUIDANCE COUNSELOR Legal Sex Male 3:45 AM EDUCATIONAL GUIDANCE COUNSELOR Gender Identity Male 08/03/2018 11:22 AM EDUCATIONAL GUIDANCE COUNSELOR Sexual Orientation Straight 08/03/2018 11 :23 AM EDUCATIONAL GUIDANCE COUNSELOR Occupation Industry Job Start Date Job End Date Retired Not on file Not on file Not on file Obstetrics History Last Filed Vital Signs Vital Sign Reading [...] 12/09/2023 9:37 AM CDT Plan of Treatment Health Maintenance Due Date Last Done Comments Depression Screening 1940 DTaP/Tdap/Td Vaccine (1 - Tdap) 1953 Hepatitis B Screening 1960 Well Visit 65+ 2007 Pneumococcal vaccine 65+ (2 of 2 - PPSV23) 2016 2015 Covid-19 Vaccine (3 - season) 2024, 07/22/2020 Influenza Vaccine (#1) 2024 02/12/2020 Fall Risk Assessment 12/08/2024 12/09/2023 Zoster Vaccine Completed 05/12/2019, 02/25/2019 Abdominal Aortic Aneurysm (AAA) Screen Completed Medical Devices Implanted Type Area Aerodynamics Professor Device Identifier Shelf Expiration Date Model / Serial / Lot [employer] Vascade Mvp 6-12fr Venous Closure [id number] - [id number] Implanted:Qty: 1 on 09/30/2023 by Santiago Morelos MD at [facility] Right: Femoral Vein [employer] Inc 06/27/2025 [id number] / / [id number] Endoprosthesis Endoprosthesis Bilateral: Knee Description:Bilateral knee r eplacements Medtronic Implantable Loop Recorder- [id number] Implanted:01/15 by Brian Washington MD (Quantity not on file) Implantable Loop Recorder Chest Medtronic Cardiac Rhythm Mgmt [id number] / [id number] / Medtronic Cardiac Rhythm Mgmt 5076-58 Capsurefix Novus 6.2fr 2mm 58cm Bipolar Screw In Implantable - [id number] - [id number] Implanted:Qty: 1 on 06/25/2021 by Shaka Pennington III, MD at [facility] Lead Medtronic Inc [id number] 02/19/2023 5076-58 / [id number] / Medtronic Cardiac Rhythm Mgmt 5076-52 Capsurefix Novus 6.2fr 2mm 52cm Bipolar Screw In Implantable Latex Free - [id number] - [id number] Implanted:Qty: 1 on 06/25/2021 by Shaka Pennington III, MD at [facility] Lead Medtronic Inc [id number] 04/03/2023 5076-52 / [id number] / [employer] Percutaneous Transcatheter Amplatzer Amulet 22mm [id number] - [id number] Implanted:Qty: 1 on 09/30/2023 by Santiago Morelos MD at [facility] Left Atrial Appendage Occluder Left: Atrial Appendage [employer] 09/27/2027 9-ACP2- [id number] / / [id number] Medtronic Cardiac Rhythm Mgmt [id number] Alston S Mri Surescan 50.8x46.6mm 2 Chamber 7.4mm Pacemaker 22.5gm - [id number] - [id number] Implanted:Qty: 1 on 06/25/2021 by Shaka Pennington III, MD at [facility] Pacemaker Medtronic Inc [id number] 10/24/2022 [id number] / [id number] / [employer] Device Clsr Perclose Prostyle Sut-Mediatd Closure-Repair Sys 06580-12 - [id number] Implanted:Qty: 1 on 09/30/2023 by Santiago Morelos MD at [facility] Right: Femoral Vein [employer] 07/27/2025 [id number] / / [id number] Procedures Procedure Name Priority Date/Time Associated Diagnosis Comments DEVICE CHECK - REMOTE Routine 07/18/2024 11:03 AM EDUCATIONAL GUIDANCE COUNSELOR Paroxysmal atrial fibrillation (HCC) SSS (sick sinus syndrome) (HCC) CT CHEST ABDOMEN PELVIS W CONTRAST Schedule Routine, Read Routine (OP Routine) 09/15/2022 1:18 PM CDT Brain mass from Last 3 Months or Most Recently Relevant to Health Maintenance Results * DEVICE CHECK - REMOTE (07/18/2024 11:03 AM EDUCATIONAL GUIDANCE COUNSELOR) Anatomical Region Laterality Modality Other Narrative 07/24/2024 12:53 PM EDUCATIONAL GUIDANCE COUNSELOR Medtronic Sumi Dual Pacemaker. Dx; H/O Sinus Arrest, Syncope, RBBB, Parox Afib/Aflutter-Xarelto. DOI 06/25/2021-Aditi [facility] remote monitoring. ILR was not explanted. Routine AAI<>DDD Pacemaker Remote. Transmission attached. Battery status-3.00V, 10.3 years remaining to DARRIUS. Stable lead impedances, pacing and sensing thresholds. Presenting rhythm: AFib Vpaced. AP-<0.1 %, PET TECHNOLOGIST-100 %. AF [place] 100%. No Ventricular high rate episodes noted. [...] it. Electronically signed by: Lexii Perez MD Narrative 09/15/2022 4:28 PM CDT EXAMINATION: Computed tomography [...] Most Recently Relevant to [place] [address] MEDICARE [facility] MEDICARE BLUE [employer]OSS MEDICARE SUPPLEMENT MEDICARE [facility] Advance Directives For more information, please contact: [phone] * Full Code (Latest Code Status on File) Date Activated Date Inactivated Comments 06/25/2021 12:44 PM 06/25/2021 8:27 PM Care Teams Equipment Manager Relationship Specialty Start Date End Date Immanuel Mcallister MD [address] [place] [address] [place] [address] PCP - General Family Medicine 07/28/23
--- OUTSIDE RECORDS SUMMARY | 2024-08-30 10:09 | XMS_ITS | Clinical Summary ---
Author Organization [facility] Address [address] [place], [address] [address] Phone Care Team Providers Care Director Of Development Name Role Phone Immanuel Mcallister MD Primary Care Provider Jasiel Blue DO Unavailable [phone] Shamika Melendez APRN, RELIGIOUS EDUCATION DIRECTOR Unavailable Allergies Active Allergy Reactions Criticality Noted Date Comments Penicillins Swelling High 03/26/2016 Sulfa Antibiotics Rash,Swelling 03/26/2016 Oxytetracycline Rash,Swelling 03/26/2016 Medications BENICAR 20 MG Tablet 6 Active levothyroxine (SYNTHROID) 75 MCG Tablet 6 Active diazePAM (VALIUM) 2 MG Tablet 6 Active omeprazole (PRILOSEC) 20 MG CAPSULE DELAYED RELEASE Take 20 mg by mouth daily. Active Probiotic Product (ALIGN PO) Take by mouth. Activ e [place]-3 Fatty Acids (OMEGA-3 FISH OIL) 1000 MG Capsule Take by mouth. Acti ve niacin 50 MG Tablet Take 50 mg by mouth daily (with dinner). Active polyethylene glycol (MIRALAX) Powder Use entire 255g bottle with 64oz of clear liquid as directed for colonoscopy prep. 255 g 0 6 Active levothyroxine (SYNTHROID) 100 MCG Tablet Take 100 mcg by mouth daily. Active GLUCOSAMINE-CHO NDROITIN POIndications:1 500/1200mg Take 1 Cap by mouth daily. Indications: 1500/1200mg Active SUPER B COMPLEX/C PO Take 1 Tab by mouth daily. Active Methylcellulose , Laxative, (CITRUCEL PO) Take 2 Caps by mouth daily. Active aspirin 325 MG Tablet Take 325 mg by mouth daily. Active Active Problems Problem Noted Date Diagnosed Date Gastroesophageal reflux disease 03/26/2016 Immunizations Immunization Administration Dates Next Due Covid-19, Mrna, Lnp-s, PF, 1 00 mcg/0.5 mL Dose (Moderna) 08/19/2020,07/22/2020 Family History Medical History Relation Name Comments Cancer Father tongue Heart Disease Father angina Diabetes Mother Relation Name Status Comments Father Mother Social History Tobacco Use Types Packs/Day Years Used Date Smoking Tobacco: Former Cigarettes 2 5 Comments:quit 50 years ago Alcohol Use Standard Drinks/Week Comments Yes 0 (1 standard drink = 0.6 oz pur e alcohol) socially Sex and Gender Information Value Date Recorded Sex Assigned at Not on file Legal Sex Male 7:27 PM CDT Gender Identity Not on file Sexual Orientation Not on file 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 Not on file Not on file Not on file Last Filed Vital Signs Vital Sign Reading Time Taken Comments Blood Pressure 100/60 03/26/2016 10:17 AM CDT Pulse 67 03/26/2016 10:17 AM CDT Temperature 36.1 C (96.9 F) 03/26/2016 10:17 AM CDT Respiratory Rate 12 03/26/2016 10:17 AM CDT Oxygen Saturation 94% 03/26/2016 10:17 AM CDT Inhaled Oxygen Concentration - - Weight 93.9 kg (207 lb) 03/26/2016 10:17 AM CDT Height 170.2 cm (5' 7 ) 03/26/2016 10:17 AM CDT Body Mass Index 32.42 03/26/2016 10:17 AM CDT Plan of Treatment Health Maintenance Due Date Last Done Comments Hepatitis C Virus (HCV) Screening 1940 TdaP Immunization 1942 Pneumococcal Immunization (5 0+ years) (1 of 1 - PCV) 1992 Zoster Immunization (1 of 2) 1992 Respiratory Syncytial Virus (RSV) Immunization (Adult) (1 - 1-dose 75+ series) 2017 Influenza Immunization (#1) 2024 SARS-COV-2 Immunization ( season) 2024 08/19/2020, 07/22/2020 Hepatitis B Immunization Aged Out No longer eligible based on patient's age to complete this topic Meningococcal Immunization (ACWY) Aged Out No longer eligible b ased on patient's age to complete this topic Rotavirus Immunization Aged Out No lo nger eligible based on patient's age to complete this topic Insurance MEDICARE [facility] SUPP[facility] Care Teams Director Of Development Relationship Specialty Start Date End Date Immanuel Mcallister MD [address] [place] [address] PCP - General Family Medicine 03/01/16 Jasiel Blue DO [address] [place] [address] Gastroenterology 03/01/16 Shamika Melendez, ASSISTED LIVING ASSISTANT, RELIGIOUS EDUCATION DIRECTOR [address] [place] [address] Nurse Practitioner Advanced Practice Nurse 03/26/16
== END 2024-08-30 09:39 | disposition home or self-care (01) ==
PROVIDERS: PCP Family Medicine; Visit Provider Internal Medicine Hematology & Oncology
DX: R16.2 Hepatomegaly with splenomegaly, not elsewhere classified (principal); D72.819 Decreased white blood cell count, unspecified
CPT/HCPCS: 76700

== ENCOUNTER 2024-09-04 08:19 | Outpatient (CLI) | payer MEDICARE, SELFPAY ==
--- OUTSIDE RECORDS SUMMARY | 2024-09-04 08:29 | XMS_ITS | Encounter Summary ---
Author Organization [facility] [employer] [facility] Address [address] [place] [address] Care Team Providers Care Grinding Operator Name Role Phone Immanuel Mcallister MD Primary Care Provider Encounter Details Date Type Department Care Team (Late st Contact Info) Description 08/30/2024 Orders Only [facility] Oncology and Hematology Jose Juan [address] [place] [address] Giovanni Montenegro MD [facility] [employer] [address] [place] [phone] Social History Tobacco Use Types Packs/Day Years Used Date Smoking Tobacco: Former Cigarettes 2 3 Q uit: 05/30/1965 Smokeless Tobacco: Never Alcohol Use Standard Drinks/Week Comments Yes 0 (1 standard drink = 0.6 oz pur e alcohol) Socially Sex and Gender Information Value Date Recorded Sex Assigned at Not on file Legal Sex Male 4:07 PM CDT Gender Identity Not on file Sexual Orientation Not on file documented as of this encounter Plan of Treatment Upcoming Encounters Date Type Department Care Team (Late st Contact Info) Description 09/07/2024 10:00 AM CDT Office Visit [facility] Oncology and Hematology - Jose Juan [address] [place] [address] Giovanni Montenegro MD [address] [employer] [facility] [address] [place] [address] documented as of this encounter Procedures Procedure Name Priority Date/Time Associated Diagnosis Comments US ABDOMEN COMPLETE Routine 08/30/2024 1:42 PM CDT documented in this encounter Results * US ABDOMEN COMPLETE (08/30/2024 1:42 PM CDT) Anatomical Region Laterality Modality Abdomen Ultrasound us Giovanni Montenegro MD US ORDERABLES Final Result documented in this encounter Visit Diagnoses Not on filedocumented in this encounter Care Teams Grinding Operator Relationship Specialty Start Date End Date Immanuel Mcallister MD [address] [place] [phone] PCP - General Family Practice 10/05/23 documented as of this encounter
--- OUTSIDE RECORDS SUMMARY | 2024-09-04 08:29 | XMS_ITS | Clinical Summary ---
Author Organization [facility] [address] [facility] [address] Address [address] [place] [address] Care Team Providers Care Rotary Cutter Operator Name Role Phone Immanuel Mcallister MD Primary Care Provider [phone] Allergies Active Allergy Reactions Criticality Noted Date Comments Clindamycin-Benzoyl Peroxide Other (See comments) Low 12/09/2022 difficult swallowing Dog Dander Shortness of breath,Sneezing High 09/20/2023 Erythromycin Oxytetracycline Rash,Swelling Medium 03/26/2016 Penicillins Swelling High 03/26/2016 Sulfa (Sulfonamide Antibiotics) Sulfasalazine Rash,Swelling Medium 03/26/2016 Medications glucosamine-cho ndroit-vit C-Mn (GLUCOSAMINE CHONDROITIN MAXSTR) 500-400 mg capsule take 1 by Oral route 2 times every day 0 0 04/08/20 14 Active B-complex with vitamin C (VITAMIN B COMPLEX WITH C) capsule TAKE 1 BY MOUTH ONCE A DAY 0 0 04/08/20 14 Active diazePAM (VALIUM) 2 mg tablet take 1 tablet by oral route every day 0 0 04/08/20 14 Active Additional Information Patient taking differently:2 mgoral Daily, Reported on 05/17/2024 tamsulosin (FLOMAX) 0.4 mg extended release capsule Take 1 capsule (0.4 mg total) by mouth daily before lunch Active lactobacillus combo no.6 (PROBIOTIC COMPLEX ORAL) Take 1 capsule by mouth every morning Active finasteride (PROSCAR) 5 mg tablet Take 1 tablet (5 mg total) by mouth nightly 03/07/20 19 Active carboxymethylce llulose (REFRESH TEARS) 0.5 % ophthalmic solution Administer 1 drop into both eyes as needed Active atorvastatin (LIPITOR) 20 mg tablet TAKE 1 TABLET BY MOUTH EVERYDAY AT BEDTIME 90 tablet 2 02/10/20 22 Active Additional Information Patient taking differently: 20 mg oral Nightly, Reported on 09/20/2023 triamcinolone (KENALOG) 0.1 % cream Apply 1 g topically 2 (two) times a day as needed APPLY TO AFFECTED AREA 12/29/19 22 Active psyllium 0.52 gram capsule Take 2 capsules (1.04 g total) by mouth 2 (two) times a day Active levothyroxine (SYNTHROID) 100 mcg tablet Take 75 mcg by mouth wood technologist before breakfast 100 mcg daily and an additional 75 mcg on Tuesday and Tuesday Active levothyroxine (SYNTHROID) 75 mcg tablet Take 1 tablet (75 mcg total) by mouth as directed Takes on Tuesday & Tuesday only 08/08/19 24 Active cetirizine (ZyrTEC) 10 mg tablet Take 1 tablet (10 mg total) by mouth nightly Active omeprazole 20 mg tablet,delayed release (DR/EC) Take 1 tablet (20 mg total) by mouth 2 (two) times a day 10/01/19 24 Active ferrous sulfate 325 mg (65 mg of elemental iron) tablet Take 1 tablet (325 mg total) by mouth daily Active metoprolol tartrate (LOPRESSOR) 25 mg immediate release tablet Take 1 tablet (25 mg total) by mouth 2 (two) times a day 60 tablet 11 11/23/19 24 025 Active omega-3 fatty acids/fish oil (OMEGA 3 FISH OIL ORAL) Take 1 tablet by mouth 2 (two) times a day Active clopidogreL (PLAVIX) 75 mg tablet TAKE 1 TABLET BY MOUTH EVERY DAY 90 tablet 3 09/01/19 25 Active clopidogreL (PLAVIX) 75 mg tabletIndicatio ns:coronary artery disease Take 1 tablet (75 mg total) by mouth daily 90 tablet 3 10/02/19 24 025 Discontinued Active Problems Problem Noted Date Diagnosed Date [...] CareLink Assessment & Plan (06/16/2021 12:56 PM GREASER OPERATOR): Abrupt syncope with associated 30 second pause [...] Implantable Loop Recorder, Dx; Syncope, PAF. DOI 01/16/2020-Felix. Carelink remote monitoring. Syncope 12/18/2019 Assessment & Plan (12/02/2020 2:09 PM CDT): No pauses/bradycardia on ILR. No clear arrhythmic cause. --Continue ILR monitoring. 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 Assessment & Plan (07/07/2023 10:27 AM GREASER OPERATOR): On PRN treatment regimen (can often go about 4-5 months between injections). Last NICOLE was 05/26/23 and he remains without macular edema today. Will observe and have him return in about 8-9 weeks for DFE OD, OCT mac OD. Assessment & Plan (05/26/2023 10:55 AM GREASER OPERATOR): On PRN treatment regimen. Signs of active [...] proceed. Assessment & Plan (04/13/2023 11:44 AM GREASER OPERATOR): Getting shot about every 4 months - [...] proceed. Assessment & Plan (06/03/2022 12:01 PM GREASER OPERATOR): Receiving injections about every 3-4 months. Today [...] weeks Assessment & Plan (07/30/2021 10:30 AM GREASER OPERATOR): Last NICOLE 11/26/20 Mild change in VA, ME about the same - will re-inject Eylea OD. R/B/A reviewed, pt wishes to proceed. Assessment & Plan (06/22/2021 11:29 AM GREASER OPERATOR): Previously required NICOLE q 4-5 months Today [...] & Plan (12/23/2020 2:51 PM CDT): Sees Xochitlo q4 mo, getting injections OD Assessment & Plan (11/26/2020 10:58 AM CDT): Previously required NICOLE q 4-5 months Today with mild recurrence of fluid and patient has noticed slight subjective visual climate change analyst past 1-2 months. Last injection was 04/10/20 (6.5 months). Patient prefers PRN therapy. Given fluid and vision changes, recommend treatment today. Follow up in 4 months. Assessment & Plan (07/31/2020 10:52 AM GREASER OPERATOR): Previously required NICOLE q 4-5 months Today with no ME, last injection aprox 4 months ago We discussed p.r.n. therapy versus treat and extend. Patient wishes PRN tx, however he would like re-evaluation in roughly 3 months time. Assessment & Plan (04/10/2020 10:32 AM GREASER OPERATOR): Previously required NICOLE q 4-5 months Today [...] today. Assessment & Plan (07/05/2019 11:13 AM GREASER OPERATOR): Previously required NICOLE q 4-5 months, but [...] 09/18/18 Previously had recurrence of intraretinal fluid ~q3spussc after injections. I offered an appointment next month however patient would like to spread out appointment if possible. He would like to return in 8 weeks time. He will call us if things worsen before that appointment. Assessment & Plan (11/20/2018 10:15 AM CDT): Dry today after injection last visit 9 weeks ago 09/18/18 Usually gets recurrence of intraretinal fluid ~f2gjfmga after injections -follow up in another 9-10 [...] proceed. Assessment & Plan (07/24/2018 10:57 AM GREASER OPERATOR): Without macular edema today. Patient has been averaging injection every 5 months or so. We will re-evaluate in roughly 8 weeks time. Assessment & Plan (06/12/2018 10:53 AM GREASER OPERATOR): Dry today; previously went from 11/17/17 until 05/08/18 (24.5 weeks) without needing an injection and had recurred on 05/08/18 now status post (s/p) NICOLE that day -dry today, continue to monitor. Assessment & Plan (05/08/2018 11:23 AM GREASER OPERATOR): Now with recurrent macular edema right eye, [...] BID Assessment & Plan (06/16/2021 12:54 PM GREASER OPERATOR): 6% burden, Minimally symptomatic. Complicated by sinus [...] 03/02/20 19 Overview (09/03/2016): HTN (hypertension), benign Encounters Date Type Department Care Team Description 07/18/2024 9:00 AM GREASER OPERATOR Ancillary Procedure [facility] [address] [place] [phone] Cardiac pacemaker in situ [Z95.0] (Primary Dx); Paroxysmal atrial fibrillation (HCC); SSS (sick sinus syndrome) (HCC) from Last 3 Months Immunizations Immunization Administration [...] HTN, allergies, right visual loss, hypothyroidism,; [place] [facility] [place] Hx Other Medical right femur bon e growth removal; Comments[place] [facility] [place] - CRVO (central retinal vein o cclusion) (HCC) Central retinal vein occlusi on of right eye (HCC) Arrhythmia Coronary artery disease Hyperlipidemia Hypertension GERD (gastroesophageal reflux disease) 1974 Cataract Glaucoma 1989 Heart disease Thyroid disease 1972 Bifascicular block 04/2015 Abnormal stress test 09/2018 Persistent atrial fibrillation (HCC) 04/2015 Atrial fibrillation (HCC) 2019 Dizziness of unknown etiology 09/20/2023 ov [...] Sex Assigned at Male 08/03/2018 11:22 AM GREASER OPERATOR Legal Sex Male 3:45 AM GREASER OPERATOR Gender Identity Male 08/03/2018 11:22 AM GREASER OPERATOR Sexual Orientation Straight 08/03/2018 11 :23 AM GREASER OPERATOR Occupation Industry Job Start Date Job End [...] Covid-19 Vaccine (3 - season) 2024, 07/22/2020 Fall Risk Assessment 12/08/2024 12/09/2023 Influenza Vaccine (Season Ended) 2025 02/12/20 20 Zoster Vaccine Completed 05/12/2019, 02/25/2019 Abdominal Aortic Aneurysm (AAA) Screen Completed Medical Devices Implanted Type Area Certified Bench Jeweler Technician Device Identifier Shelf Expiration Date Model / Serial / Lot [employer] Inc Vascade Mvp 6-12fr Venous Closure [id number] - [id number] Implanted:Qty: 1 on 09/30/2023 by Santiago Morelos MD at [facility] Collagen Right: Femoral Vein [employer] Inc 06/27/2025 [id number] / / [id number] Endoprosthesis Endoprosthesis Bilateral: Knee Description:Bilateral knee r eplacements Medtronic Implantable Loop Recorder- 020 Implanted:01/15 by Brian Washington MD (Quantity not on file) Implantable Loop Recorder Chest Medtronic Cardiac Rhythm Mgmt [id number] / [id number] / Medtronic Cardiac Rhythm Mgmt 5076-58 Capsurefix Novus 6.2fr 2mm 58cm Bipolar Screw In Implantable - [id number] - [id number] Implanted:Qty: 1 on 06/25/2021 by Shaka Pennington III, MD at [facility] Lead Medtronic Inc [id number] 02/19/2023 5076-58 / [id number] / Medtronic Cardiac Rhythm Mgmt 5076-52 Capsurefix Novus 6.2fr 2mm 52cm Bipolar Screw In Implantable Latex Free - [id number] - [id number] Implanted:Qty: 1 on 06/25/2021 by Shaka Pennington III, MD at [facility] Lead Medtronic Inc [id number] 04/03/2023 5076-52 / [id number] / [employer] Percutaneous Transcatheter Amplatzer Amulet 22mm 3-[id number] - [id number] Implanted:Qty: 1 on 09/30/2023 by Santiago Morelos MD at [facility] Left Atrial Appendage Occluder Left: Atrial Appendage [employer] 09/27/2027 9-ACP2- [id number] / / [id number] Medtronic Cardiac Rhythm Mgmt [id number] [place] S Mri Surescan 50.8x46.6mm 2 Chamber 7.4mm Pacemaker 22.5gm - [id number] - [id number] Implanted:Qty: 1 on 06/25/2021 by Shaka Pennington III, MD at [facility] Pacemaker Medtronic Inc [id number] 10/24/2022 [id number] / [id number] / [employer] Device Clsr Perclose Prostyle Sut-Mediatd Closure-Repair Sys 28752-90 - [id number] Implanted:Qty: 1 on 09/30/2023 by Santiago Morelos MD at [facility] Right: Femoral Vein [employer] 07/27/2025 49596-9 [id number] / / [id number] Procedures Procedure Name Priority Date/Time Associated Diagnosis Comments DEVICE CHECK - REMOTE Routine 07/18/2024 11:03 AM GREASER OPERATOR Paroxysmal atrial fibrillation (HCC) SSS (sick sinus syndrome) (HCC) CT CHEST ABDOMEN PELVIS W CONTRAST Schedule Routine, Read Routine (OP Routine) 09/15/2022 1:18 PM CDT Brain mass from Last 3 Months or Most Recently Relevant to Health Maintenance Results * DEVICE CHECK - REMOTE (07/18/2024 11:03 AM GREASER OPERATOR) Anatomical Region Laterality Modality Other Narrative 07/24/2024 12:53 PM GREASER OPERATOR Medtronic [place] Dual Pacemaker. Dx; H/O Sinus Arrest, Syncope, RBBB, Parox Afib/Aflutter-Xarelto. DOI 06/25/2021-Aditi Carelink remote monitoring. ILR was not explanted. Routine AAI<>DDD Pacemaker Remote. Transmission attached. Battery status-3.00V, 10.3 years remaining to DARRIUS. Stable lead impedances, pacing and sensing thresholds. Presenting rhythm: AFib Vpaced. AP-<0.1 %, ENHANCED ENVIRONMENTAL OPERATOR-100 %. AF [place] 100%. No Ventricular high rate episodes noted. Medication: Plavix, Lopressor. Left atrial appendage closure was performed on 09/30/2023. Follow up: carelink remote 10/24/2024. Office device f/u and ROV with Dr Pennington scheduled 09/12/2024. Ana Fraga, CANDICE Santiago Morelos MD [facility] CARDIAC SERVICES PROCEDURES [...] Most Recently Relevant to Health Maintenance Insurance MEDICARE [facility] MEDICARE BLUE CROSS MEDICARE SUPPLEMENT MEDICARE [facility] Advance Directives For more information, please contact: [phone] * Full Code (Latest Code Status on File) Date Activated Date Inactivated Comments 06/25/2021 12:44 PM 06/25/2021 8:27 PM Care Teams Rotary Cutter Operator Relationship Specialty Start Date End Date Immanuel Mcallister MD [address] [place] [address] PCP - General Family Medicine 07/28/23
--- OUTSIDE RECORDS SUMMARY | 2024-09-04 08:29 | XMS_ITS | Clinical Summary ---
Author Organization [facility] Address [address] [place], [address] [address] Phone Care Team Providers Care Rn Surgical Name Role Phone Immanuel Mcallister MD Primary Care Provider [phone] Jasiel Blue DO Unavailable [phone] Shamika Melendez APRN, PAPER MAKING MACHINE OPERATOR Unavailable Allergies Active Allergy Reactions Criticality Noted [...] (ALIGN PO) Take by mouth. Activ e [place]-3 Fatty Acids (OMEGA-3 FISH OIL) 1000 MG [...] age to complete this topic Insurance MEDICARE [facility] SUPPLE[facility]AL Care Teams Rn Surgical Relationship Specialty Start Date End Date Immanuel Mcallister MD [address] [place] [address] PCP - General Family Medicine 03/01/16 Jasiel Blue DO [address] [place] [address] Gastroenterology 03/01/16 Shamika Melendez, COMMUNITY OUTREACH WORKER, PAPER MAKING MACHINE OPERATOR [address] [place] [address] Nurse Practitioner Advanced Practice Nurse 03/26/16
--- OUTSIDE RECORDS SUMMARY | 2024-09-04 08:29 | XMS_ITS | Clinical Summary ---
Author Organization [facility] Address [address] [facility] [place] [address] Care Team Providers Care Cushion Spring Assembler Name Role Phone Immanuel Mcallister MD Primary [...] 2 Capsules by mouth daily. Active Fish Oil-[place]-3 Fatty Acids 360-1,200 mg Capsule Take 1 [...] Encounters Date Type Department Care Team Description 09/04/2024 Orders Only [facility] Oncology and Hematology - Jose Juan [address] [place] [address] Giovanni Montenegro MD 08/30/2024 Orders Only [facility] Oncology and Hematology - Jose Juan [address] [place] [address] Giovanni Montenegro MD 08/15/2024 External Device Data STL ABSTRACTION Provider, [...] Comments Blood Pressure 113/61 05/03/2024 10:07 AM ONLINE CONTENT COORDINATOR Pulse 77 05/03/2024 10:07 AM ONLINE CONTENT COORDINATOR Temperature 36.7 C (98 F) 05/03/2024 10:07 AM ONLINE CONTENT COORDINATOR Respiratory Rate 15 05/03/2024 10:07 AM ONLINE CONTENT COORDINATOR Oxygen Saturation 97% 05/03/2024 10:07 AM ONLINE CONTENT COORDINATOR Inhaled Oxygen Concentration - - Weight 93.9 kg (207 lb) 05/03/2024 10:07 AM ONLINE CONTENT COORDINATOR Height 170.2 cm (5' 7 ) 10/05/2023 11:20 AM CDT Body Mass Index 32.42 10/05/2023 11:20 AM CDT Plan of Treatment Upcoming Encounters Date Type Department Care Team (Late st Contact Info) Description 09/07/2024 10:00 AM CDT Office Visit [facility] Oncology and Hematology - [place] [address] [facility] [address] [place] [address] Giovanni Montenegro MD [address] [facility] [address] [place] [address] Health Maintenance Due Date Last Done Comments DTAP/TDAP/TD VACCINES (1 - Tdap) 1959 Traditional Medicare (ACO) A nnual Wellness Visit 1959 PNEUMOCOCCAL VACCINE 50+ YEA RS (2 of 2 - PPSV23) 2016 2015 RSV VACCINE (60+ or ) (1 - 1-dose 75+ series) 2017 INFLUENZA VACCINE (#1) 2023 02/12/2020 ZOSTER VACCINE Completed 05/12/2019, 02/25/2019 Procedures Procedure Name Priority Date/Time Associated Diagnosis Comments US ABDOMEN COMPLETE Routine 08/30/2024 1:42 PM CDT from Last 3 Months Results * US ABDOMEN COMPLETE (08/30/2024 1:42 PM CDT) Anatomical Region Laterality Modality Abdomen Ultrasound us Giovanni Montenegro MD US ORDERABLES Final Result from Last 3 Months Insurance MEDICARE PART A AND B BCBS SUPP Care Teams Cushion Spring Assembler Relationship Specialty Start Date End Date Immanuel Mcallister MD [address] [place] [phone] PCP - General Family Practice 10/05/23
--- OUTSIDE RECORDS SUMMARY | 2024-09-04 08:29 | XMS_ITS | Referral Summary ---
Author Organization [facility] [place] [address] Address [address] [place] [address] Care Team Providers Care Plasterer Foreman Name Role Phone Immanuel Mcallister MD Primary Care Provider [phone] Encounters Date Type Department Care Team Description 07/18/2024 9:00 AM ENTERPRISE ACCOUNT MANAGER Ancillary Procedure [facility] [address] [place] [id number] Cardiac pacemaker in situ [Z95.0] (Primary [...] mcg tablet Take 75 mcg by mouth grooming assistant before breakfast 100 mcg daily and an [...] pacemaker in situ 06/30/2021 Overview (06/30/2021): Medtronic Exline Dual Pacemaker. Dx; H/O Sinus Arrest, Syncope, RBBB, Parox Afib/Aflutter. DOI 06/25/2021-Aditi (EP)Felix (CARD). [facility] remote monitoring. ILR was not explanted. Sinus node dysfunction 06/16/2021 Assessment & Plan (08/25/2022 12:58 PM CDT): S/p dual chamber pacemaker. Excellent device function. --Continue remote device f/u quarterly via [facility] Assessment & Plan (06/16/2021 12:56 PM ENTERPRISE ACCOUNT MANAGER): Abrupt syncope with associated 30 second pause [...] Implantable Loop Recorder, Dx; Syncope, PAF. DOI 01/16/2020-[place]. [facility] remote monitoring. Syncope 12/18/2019 Assessment & Plan (12/02/2020 2:09 PM CDT): No pauses/bradycardia on ILR. No clear arrhythmic cause. --Continue ILR monitoring. 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 Assessment & Plan (07/07/2023 10:27 AM ENTERPRISE ACCOUNT MANAGER): On PRN treatment regimen (can often go about 4-5 months between injections). Last NICOLE was 05/26/23 and he remains without macular edema today. Will observe and have him return in about 8-9 weeks for DFE OD, OCT mac OD. Assessment & Plan (05/26/2023 10:55 AM ENTERPRISE ACCOUNT MANAGER): On PRN treatment regimen. Signs of active [...] proceed. Assessment & Plan (04/13/2023 11:44 AM ENTERPRISE ACCOUNT MANAGER): Getting shot about every 4 months - [...] proceed. Assessment & Plan (06/03/2022 12:01 PM ENTERPRISE ACCOUNT MANAGER): Receiving injections about every 3-4 months. Today [...] weeks Assessment & Plan (07/30/2021 10:30 AM ENTERPRISE ACCOUNT MANAGER): Last NICOLE 11/26/20 Mild change in VA, ME about the same - will re-inject Eylea OD. R/B/A reviewed, pt wishes to proceed. Assessment & Plan (06/22/2021 11:29 AM ENTERPRISE ACCOUNT MANAGER): Previously required NICOLE q 4-5 months Today [...] and patient has noticed slight subjective visual price changer past 1-2 months. Last injection was 04/10/20 (6.5 months). Patient prefers PRN therapy. Given fluid and vision changes, recommend treatment today. Follow up in 4 months. Assessment & Plan (07/31/2020 10:52 AM ENTERPRISE ACCOUNT MANAGER): Previously required NICOLE q 4-5 months Today with no ME, last injection aprox 4 months ago We discussed p.r.n. therapy versus treat and extend. Patient wishes PRN tx, however he would like re-evaluation in roughly 3 months time. Assessment & Plan (04/10/2020 10:32 AM ENTERPRISE ACCOUNT MANAGER): Previously required NICOLE q 4-5 months Today [...] today. Assessment & Plan (07/05/2019 11:13 AM ENTERPRISE ACCOUNT MANAGER): Previously required NICOLE q 4-5 months, but [...] 09/18/18 Previously had recurrence of intraretinal fluid ~q6anptsc after injections. I offered an appointment next month however patient would like to spread out appointment if possible. He would like to return in 8 weeks time. He will call us if things worsen before that appointment. Assessment & Plan (11/20/2018 10:15 AM CDT): Dry today after injection last visit 9 weeks ago 09/18/18 Usually gets recurrence of intraretinal fluid ~j5skosld after injections -follow up in another 9-10 [...] proceed. Assessment & Plan (07/24/2018 10:57 AM ENTERPRISE ACCOUNT MANAGER): Without macular edema today. Patient has been averaging injection every 5 months or so. We will re-evaluate in roughly 8 weeks time. Assessment & Plan (06/12/2018 10:53 AM ENTERPRISE ACCOUNT MANAGER): Dry today; previously went from 11/17/17 until 05/08/18 (24.5 weeks) without needing an injection and had recurred on 05/08/18 now status post (s/p) NICOLE that day -dry today, continue to monitor. Assessment & Plan (05/08/2018 11:23 AM ENTERPRISE ACCOUNT MANAGER): Now with recurrent macular edema right eye, [...] BID Assessment & Plan (06/16/2021 12:54 PM ENTERPRISE ACCOUNT MANAGER): 6% burden, Minimally symptomatic. Complicated by sinus [...] Sex Assigned at Male 08/03/2018 11:22 AM ENTERPRISE ACCOUNT MANAGER Legal Sex Male 3:45 AM ENTERPRISE ACCOUNT MANAGER Gender Identity Male 08/03/2018 11:22 AM ENTERPRISE ACCOUNT MANAGER Sexual Orientation Straight 08/03/2018 11 :23 AM ENTERPRISE ACCOUNT MANAGER Occupation Industry Job Start Date Job End [...] on file Medical Devices Implanted Type Area Associate Material Handler Device Identifier Shelf Expiration Date Model / Serial / Lot [employer] Vascade Mvp 6-12fr Venous Closure [id number] - [id number] Implanted:Qty: 1 on 09/30/2023 by Santiago Morelos MD at [facility] Collagen Right: Femoral Vein [employer] 06/27/2025 [id number] [id number] / / [id number] Endoprosthesis Endoprosthesis Bilateral: Knee Description:Bilateral knee r eplacements Medtronic Implantable Loop Recorder- 020 Implanted:01/15 by Brian Washington MD (Quantity not on file) Implantable Loop Recorder Chest Medtronic Cardiac Rhythm Mgmt [id number] / [id number] / Medtronic Cardiac Rhythm Mgmt 5076-58 Capsurefix Novus 6.2fr 2mm 58cm Bipolar Screw In Implantable - [id number] - [id number] Implanted:Qty: 1 on 06/25/2021 by Shaka Pennington III, MD at [facility] Lead Medtronic Inc [id number] 02/19/2023 5076-58 / [id number] / Medtronic Cardiac Rhythm Mgmt 5076-52 Capsurefix Novus 6.2fr 2mm 52cm Bipolar Screw In Implantable Latex Free - [id number] - [id number] Implanted:Qty: 1 on 06/25/2021 by Shaka Pennington III, MD at [facility] Lead Medtronic Inc [id number] 04/03/2023 5076-52 / [id number] / [employer] Percutaneous Transcatheter Amplatzer Amulet 22mm 4-Zpm3-652-022 - [id number] Implanted:Qty: 1 on 09/30/2023 by Santiago Morelos MD at [facility] Left Atrial Appendage Occluder Left: Atrial Appendage [employer] 09/27/2027 9-ACP2- 007-022 / / [id number] Medtronic Cardiac Rhythm Mgmt [id number] Exline S Mri Surescan 50.8x46.6mm 2 Chamber 7.4mm Pacemaker 22.5gm - [id number] - [id number] Implanted:Qty: 1 on 06/25/2021 by Shaka Pennington III, MD at [facility] Pacemaker Medtronic Inc [id number] 10/24/2022 W3DR01 / [id number] / [employer] Device Clsr Perclose Prostyle Sut-Mediatd Closure-Repair Sys 33179-03 - [id number] Implanted:Qty: 1 on 09/30/2023 by Santiago Morelos MD at [facility] Right: Femoral Vein [employer] 07/27/2025 61863-4 3 / / [id number] Procedures Procedure Name Priority Date/Time Associated Diagnosis Comments DEVICE CHECK - REMOTE Routine 07/18/2024 11:03 AM ENTERPRISE ACCOUNT MANAGER Paroxysmal atrial fibrillation (HCC) SSS (sick sinus syndrome) (HCC) CT CHEST ABDOMEN PELVIS W CONTRAST Schedule Routine, Read Routine (OP Routine) 09/15/2022 1:18 PM CDT Brain mass from Last 3 Months or Most Recently Relevant to Health Maintenance Results * DEVICE CHECK - REMOTE (07/18/2024 11:03 AM ENTERPRISE ACCOUNT MANAGER) Anatomical Region Laterality Modality Other Narrative 07/24/2024 12:53 PM ENTERPRISE ACCOUNT MANAGER Medtronic Exline Dual Pacemaker. Dx; H/O Sinus Arrest, Syncope, RBBB, Parox Afib/Aflutter-Xarelto. DOI 06/25/2021-[facility] remote monitoring. ILR was not explanted. Routine AAI<>DDD Pacemaker Remote. Transmission attached. Battery status-3.00V, 10.3 years remaining to DARRIUS. Stable lead impedances, pacing and sensing thresholds. Presenting rhythm: AFib Vpaced. AP-<0.1 %, CIRCULAR SAWYER STONE-100 %. AF Spray 100%. No Ventricular high rate episodes noted. [...] Most Recently Relevant to [place] [address] MEDICARE [facility] MEDICARE BLUE CROSS MEDICARE SUPPLEMENT MEDICARE [facility] Advance Directives For more information, please contact: [phone] * Full Code (Latest Code Status on File) Date Activated Date Inactivated Comments 06/25/2021 12:44 PM 06/25/2021 8:27 PM Care Teams Plasterer Foreman Relationship Specialty Start Date End Date Immanuel Mcallister MD [address] [place] [id number] PCP - General Family Medicine 07/28/23
--- OUTSIDE RECORDS SUMMARY | 2024-09-04 08:29 | XMS_ITS | Encounter Summary ---
Author Organization [facility] [employer] Address [address] [place] [address] Care Team Providers Care Vulcanizing Press Operator Name Role Phone Immanuel Mcallister MD Primary Care Provider [phone] Encounter Details Date Type Department Care Team (Late st Contact Info) Description 09/04/2024 Orders Only [facility] Jose Juan [address] [place] [address] Giovanni Montenegro MD [facility] [address] [place] [phone] Social History Tobacco Use Types Packs/Day [...] Description 09/07/2024 10:00 AM CDT Office Visit [facility] - Jose Juan [address] [place] [address] Giovanni Montenegro MD [address] [place] [address] documented as of this encounter Visit Diagnoses Not on filedocumented in this encounter Care Teams Vulcanizing Press Operator Relationship Specialty Start Date End Date Immanuel Mcallister MD [address] [place] [phone] PCP - General Family Practice 10/05/23 documented as of this encounter
[2024-09-04 08:38] LABS: Eosinophils Absolute Auto 0.1 K/mm3 (0-0.3); Hematocrit 35.4 % (42.0-52.0); Immature Granulocyte Absolute 0.02 K/mm3 (0.00-0.031); Immature Granulocyte Percent A 0.5 % (0-0.5); Lymphocytes Absolute Auto 0.64 K/mm3 (0.9-3.2); Lymphocytes Percent Auto 15.9 % (18.3-44.2); Mean Corpuscular HGB Conc 33.9 g/dl (32-36); Mean Corpuscular Hemoglobin 34.4 pg (26-34); Mean Corpuscular Volume 101.4 fl (80-100); Mean Platelet Volume 10.1 fl (7.4-10.4); Monocytes Absolute Auto 0.3 K/mm3 (0.1-0.6); Neutrophils Absolute Auto 2.9 K/mm3 (1.3-6.7); Neutrophils Percent Auto 72.6 % (45.5-73.1); Platelet Count Result 127 k/mm3 (150-375); Red Blood Count 3.49 M/mm3 (4.6-6.20); Red Cell Distribution Width 13.4 % (11.5-14.5)
[2024-09-04 12:10] LABS: Iron 60 ug/dL (49-181)
[2024-09-04 12:12] LABS: Alanine Aminotransferase 15 U/L (6-50); Albumin Level 3.9 g/dL (3.5-5.1); Alkaline Phosphatase 84 U/L (38-126); Anion Gap 4 mmol/L (4-12); Aspartate Amino Transferase 46 U/L (17-59); Bilirubin,Total 0.7 mg/dL (0.2-1.3); Blood Urea Nitrogen 15 mg/dL (9-20); Calcium 8.8 mg/dL (8.4-10.2); Carbon Dioxide 31 mmol/L (22-30); Chloride 105 mmol/L (98-107); Estimated Glomerular Filt Rate > 60; Glucose 105 mg/dL (65-110); Potassium 4.7 mmol/L (3.4-5.0); Sodium 140 mmol/L (137-145)
[2024-09-04 12:21] LABS: Percent Iron Saturation 20 % (20-50)
[2024-09-04 13:29] LABS: Folic Acid > 20.0 ng/mL (2.76->20)
== END 2024-09-04 08:20 | disposition home or self-care (01) ==
LOC: ANHLAB 08:22
PROVIDERS: PCP Family Medicine; Visit Provider Internal Medicine Hematology & Oncology
DX: D50.9 Iron deficiency anemia, unspecified (principal); D72.819 Decreased white blood cell count, unspecified
CPT/HCPCS: 36415; 80053; 82607; 82728; 82746; 83540; 83550; 85025

== ENCOUNTER 2025-03-12 08:47 | Outpatient (CLI) | payer MEDICARE, SELFPAY ==
[2025-03-12 09:12] LABS: Hematocrit 35.2 % (42.0-52.0); Hemoglobin 11.6 g/dL (14.0-18.0); Immature Granulocyte Percent A 0.7 % (0-0.5); Lymphocytes Absolute Auto 0.53 K/mm3 (0.9-3.2); Mean Corpuscular HGB Conc 33.0 g/dl (32-36); Mean Corpuscular Hemoglobin 33.9 pg (26-34); Mean Corpuscular Volume 102.9 fl (80-100); Nucleated Red Blood Cells Absolute Auto 0.000 K/mm3 (0.0-0.012); Nucleated Red Blood Cells Perc 0.0 % (0.0-0.2); Platelet Count Result 103 k/mm3 (150-375); Red Blood Count 3.42 M/mm3 (4.6-6.20); White Blood Count 2.8 K/mm3 (4.5-10.0)
--- OUTSIDE RECORDS SUMMARY | 2025-03-12 09:35 | XMS_ITS | Clinical Summary ---
Author Organization [facility] Address [address], [address] [address] Phone Care Team Providers Care Ultrasound Applications Specialist Name Role Phone Immanuel Mcallister MD Primary Care Provider [phone] Jasiel Blue DO Unavailable [phone] Shamika Melendez APRN, FLIGHT TEST ENGINEER Unavailable Allergies Active Allergy Reactions Criticality Noted [...] (ALIGN PO) Take by mouth. Activ e Aristes-3 Fatty Acids (OMEGA-3 FISH OIL) 1000 MG [...] 10:17 AM CDT Height 170.2 cm (5' 7) 03/26/2016 10:17 AM CDT Body Mass Index 32.42 03/26/2016 10:17 AM CDT Plan of Treatment Health Maintenance Due Date Last Done Comments Hepatitis C Virus (HCV) Screening 1940 TdaP Immunization 1940 Pneumococcal Immunization (5 0+ years) (1 of 1 - PCV) 1992 Zoster Immunization (1 of 2) 1992 Medicare Initial AWV [id number] 03/30/2008 Respiratory Syncytial Virus (RSV) Immunization (Adult) (1 - 1-dose 75+ series) 2017 Influenza Immunization (#1) 2025 SARS-COV-2 Immunization ( season) 2025 08/19/2020, 07/22/2020 Hepatitis B Immunization Aged Out No longer eligible based on patient's age to complete this topic Human Papillomavirus (HPV) Immunization Aged Out No longer eligible b ased on patient's age to complete this topic Meningococcal Immunization (ACWY) Aged Out No longer eligible b ased on patient's age to complete this topic Rotavirus Immunization Aged Out No lo nger eligible based on patient's age to complete [place] [address] [facility] Care Teams Ultrasound Applications Specialist Relationship Specialty Start Date End Date Immanuel Mcallister MD [address] [place] [address] PCP - General Family Medicine 03/01/16 Jasiel Blue DO [address] [place] [address] Gastroenterology 03/01/16 Shamika Melendez, GTA, FLIGHT TEST ENGINEER [address] [place] [id number] Nurse Practitioner Advanced Practice Nurse 03/26/16
--- OUTSIDE RECORDS SUMMARY | 2025-03-12 09:35 | XMS_ITS | Encounter Summary ---
Author Organization [facility] [employer] [facility] Address [address] [place] [address] Care Team Providers Care Rn Enterostomal Name Role Phone Immanuel Mcallister MD Primary Care Provider Encounter Details Date Type Department Care Team (Late st Contact Info) Description 03/12/2025 Orders Only [facility] Jose Juan [address] [place] [address] Giovanni Montenegro MD [address] [employer] [address] [place] [phone] Chronic anemia (Primary Dx) Social History Tobacco Use Types Packs/Day Years [...] Care Team (Late st Contact Info) Description 03/15/2025 10:15 AM CDT Office Visit [facility]ematology - Jose Juan [address] [place] [address] Giovanni Montenegro MD [address] [place] [address] Scheduled Orders Name Type Priority Associated Diagnoses Orde r Schedule COMPREHENSIVE METABOLIC PANEL Lab Routine Chronic anemia Expected: 03/12/2025, Expires: 03/12/2026 CBC WITH DIFFERENTIAL Lab Routine Chronic anemia Expected: 03/12/2025, Expires: 03/12/2026 IRON, TIBC, AND PERCENT SATURATION Lab Routine Chronic anemia Expected: 03/12/2025, Expires: 03/12/2026 FERRITIN Lab Routine Chronic anemia Expected: 03/12/2025, Expires: 03/12/2026 VITAMIN B12 AND FOLATE Lab Routine Chronic anemia Expected: 03/12/2025, Expires: 03/12/2026 documented as of this encounter Visit Diagnoses Diagnosis Chronic anemia- Primary Anemia, unspecified documented in this encounter Care Teams Rn Enterostomal Relationship Specialty Start Date End Date Immanuel Mcallister MD [address] [place] [phone] PCP - General Family Practice 10/05/23 documented as of this encounter
--- OUTSIDE RECORDS SUMMARY | 2025-03-12 09:35 | XMS_ITS | Clinical Summary ---
Author Organization [facility] [address] [facility] [address] Address [address] [place] [address] Care Team Providers Care Athletic Agent Name Role Phone Immanuel Mcallister MD Primary Care Provider [phone] Allergies Active Allergy Reactions Criticality Noted Date [...] route every day 0 0 4 Active tamsulosin (FLOMAX) 0.4 mg extended release capsule [...] AT BEDTIME 90 tablet 2 2 Active triamcinolone (KENALOG) 0.1 % cream Apply 1 g topically 2 (two) times a day as needed APPLY TO AFFECTED AREA 2 Active psyllium 0.52 gram capsule Take 2 capsules (1.04 g total) by mouth 2 (two) times a day Active levothyroxine (SYNTHROID) 100 mcg tablet Take 75 mcg by mouth supervisor propellant charge loading before breakfast 100 mcg daily and an [...] 1 tablet (325 mg total) by mouth 2 (two) times a day Active metoprolol tartrate (LOPRESSOR) 25 mg immediate release tablet Take 1 tablet (25 mg total) by mouth 2 (two) times a day 60 tablet 11 4 Active omega-3 fatty acids/fish oil (OMEGA 3 FISH OIL ORAL) Take 1 tablet by mouth 2 (two) times a day Active clopidogreL (PLAVIX) 75 mg tablet TAKE 1 TABLET BY MOUTH EVERY DAY 90 tablet 3 5 Active Active Problems Problem Noted Date Diagnosed Date 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 S/p dual chamber pacemaker. Excellent device function by interrogation personally in office today. --Continue remote device monitoring Assessment & Plan (08/31/2023 11:04 AM CDT): S/p dual chamber pacemaker. Excellent device function. Now 100% pacing burden. 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 Dx; H/O Sinus Arrest, Syncope, RBBB, Parox Afib/Aflutter. DOI 06/25/2021-Aditi (EP), Felix (CARD). Carelink remote monitoring. ILR was not explanted. Sinus node dysfunction 06/16/2021 Assessment & Plan (08/25/2022 12:58 PM CDT): S/p dual chamber pacemaker. Excellent device function. 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 No evidence of proliferative disease. Last NICOLE w/ Dr. Gamble 05/26/23. RTC 6 months for DFE / mac OCT, sooner if changes to vision occur Assessment & Plan (05/17/2024 10:27 AM ENTHONE SOLDER STRIPPER): On PRN treatment regimen (can often go [...] OD. Assessment & Plan (07/07/2023 10:27 AM ENTHONE SOLDER STRIPPER): On PRN treatment regimen (can often go about 4-5 months between injections). Last NICOLE was 05/26/23 and he remains without macular edema today. Will observe and have him return in about 8-9 weeks for DFE OD, OCT mac OD. Assessment & Plan (05/26/2023 10:55 AM ENTHONE SOLDER STRIPPER): On PRN treatment regimen. Signs of active [...] proceed. Assessment & Plan (04/13/2023 11:44 AM ENTHONE SOLDER STRIPPER): Getting shot about every 4 months - [...] proceed. Assessment & Plan (06/03/2022 12:01 PM ENTHONE SOLDER STRIPPER): Receiving injections about every 3-4 months. Today [...] weeks Assessment & Plan (07/30/2021 10:30 AM ENTHONE SOLDER STRIPPER): Last NICOLE 11/26/20 Mild change in VA, ME about the same - will re-inject Eylea OD. R/B/A reviewed, pt wishes to proceed. Assessment & Plan (06/22/2021 11:29 AM ENTHONE SOLDER STRIPPER): Previously required NICOLE q 4-5 months Today [...] and patient has noticed slight subjective visual private branch exchange operator past 1-2 months. Last injection was 04/10/20 (6.5 months). Patient prefers PRN therapy. Given fluid and vision changes, recommend treatment today. Follow up in 4 months. Assessment & Plan (07/31/2020 10:52 AM ENTHONE SOLDER STRIPPER): Previously required NICOLE q 4-5 months Today with no ME, last injection aprox 4 months ago We discussed p.r.n. therapy versus treat and extend. Patient wishes PRN tx, however he would like re-evaluation in roughly 3 months time. Assessment & Plan (04/10/2020 10:32 AM ENTHONE SOLDER STRIPPER): Previously required NICOLE q 4-5 months Today [...] today. Assessment & Plan (07/05/2019 11:13 AM ENTHONE SOLDER STRIPPER): Previously required NICOLE q 4-5 months, but [...] 09/18/18 Previously had recurrence of intraretinal fluid ~[id number] after injections. I offered an appointment next month however patient would like to spread out appointment if possible. He would like to return in 8 weeks time. He will call us if things worsen before that appointment. Assessment & Plan (11/20/2018 10:15 AM CDT): Dry today after injection last visit 9 weeks ago 09/18/18 Usually gets recurrence of intraretinal fluid ~[id number] after injections -follow up in another 9-10 [...] proceed. Assessment & Plan (07/24/2018 10:57 AM ENTHONE SOLDER STRIPPER): Without macular edema today. Patient has been averaging injection every 5 months or so. We will re-evaluate in roughly 8 weeks time. Assessment & Plan (06/12/2018 10:53 AM ENTHONE SOLDER STRIPPER): Dry today; previously went from 11/17/17 until 05/08/18 (24.5 weeks) without needing an injection and had recurred on 05/08/18 now status post (s/p) NICOLE that day -dry today, continue to monitor. Assessment & Plan (05/08/2018 11:23 AM ENTHONE SOLDER STRIPPER): Now with recurrent macular edema right eye, [...] Persistent atrial fibrillation 05/05/2015 Assessment & Plan (09/12/2024 10:47 AM CDT): Chronic, stable. Rate controlled/asymptomatic. Now s/p pLAAO with Amulet device. OFF anticoagulation. --Continue plavix 75 mg daily Assessment & Plan (08/31/2023 11:04 AM CDT): [...] BID Assessment & Plan (06/16/2021 12:54 PM ENTHONE SOLDER STRIPPER): 6% burden, Minimally symptomatic. Complicated by sinus [...] s/p YAG cap OU Assessment & Plan (09/26/2024 10:25 AM CDT): Stable, monitor. Assessment & Plan (12/23/2020 2:57 PM CDT): [...] Encounters Date Type Department Care Team Description 01/30/2025 9:15 AM CDT Ancillary Procedure [facility] Card[facility] [address] [place] [address] [place] [id number] Syncope, unspecified syncope type (Primary Dx); Paroxysmal atrial fibrillation (HCC); SSS (sick sinus syndrome) (HCC); RBBB; Cardiac pacemaker in situ from Last 3 Months Immunizations Immunization Administration [...] HTN, allergies, right visual loss, hypothyroidism,; Comments: [facility] 04/08/2014 - Hx Other Medical right femur bon e growth removal; Comments: [facility] 04/08/2014 - CRVO (central retinal vein o cclusion) ([facility]) Central retinal vein occlusi on of right eye (HCC) Arrhythmia Coronary artery disease Hyperlipidemia Hypertension GERD (gastroesophageal reflux disease) 1974 Cataract Glaucoma 1989 Heart disease Thyroid disease 1971 Bifascicular block 04/2015 Abnormal stress test 09/2018 Persistent atrial fibrillation (HCC) 04/2015 Atrial fibrillation ([facility]) 2019 Dizziness of unknown etiology 09/20/2023 ov er past 2 months Hiatal hernia Asthma Arthritis Family History Medical History Relation Name Comments Cancer Father Lazaro Mayo Heart attack Father Lazaro Mayo Myocardial inf arction; Heart disease Father Lazaro Mayo Hypertension Father Lazaro Mayo Diabetes Mother Alexandrea Diabetes mellit ; Heart disease Mother Alexandrea Hypertension Mother Alexandrea [...] often do you have a drink containing alc ohol? Monthly or less 02/09/2024 Average Number of Drinks Not on file 024 Frequency of Binge Drinking Not on file 01/28 Personal Safety Answer Date Recorded Have you ever been in or are you currently in a harmful physical or emotional relationship or is someone making you feel afraid or unsafe? Denies 12/09/2023 Sex and Gender Information Value Date Recorded Sex Assigned at Male 08/03/2018 11:22 AM ENTHONE SOLDER STRIPPER Legal Sex Male 3:45 AM ENTHONE SOLDER STRIPPER Gender Identity Male 08/03/2018 11:22 AM ENTHONE SOLDER STRIPPER Sexual Orientation Straight 08/03/2018 11 :23 AM ENTHONE SOLDER STRIPPER Occupation Industry Job Start Date Job End Date Retired Not on file Not on file Not on file Obstetrics History Last Filed Vital Signs Vital Sign Reading Time Taken Comments Blood Pressure 112/62 11/28/2024 11:38 AM CDT Pulse 89 11/28/2024 11:38 AM CDT Temperature 36.8 C (98.2 F) 11/19/2024 1:52 PM CDT Respiratory Rate 20 12/09/2023 9:37 AM CDT Oxygen Saturation 97% 11/28/2024 11:38 AM CDT Inhaled Oxygen Concentration - - Weight 89.5 kg (197 lb 6.4 oz) 11/28/2024 11:38 AM CDT Height 170.2 cm (5' 7) 11/28/2024 11:38 AM CDT Body Mass Index 30.92 11/28/2024 11:38 AM CDT Plan of Treatment Health Maintenance Due Date Last Done Comments Depression Screening 1942 DTaP/Tdap/Td Vaccine (1 - Tdap) 1953 Hepatitis B Screening 1960 Well Visit 65+ 2007 Pneumococcal vaccine 65+ (2 of 2 - PPSV23, PCV20, or PCV21) 05/30/2015 2015 Fall Risk Assessment 12/08/2024 12/09/2023 Covid-19 Vaccine (5 - 2024-2 6 season) 2025 04/07/2021, 08/19/2020, 08/12/2020, Additional history exists Influenza Vaccine (#1) 2025 , 02/12/2020, 04/02/2019 Zoster Vaccine Completed 05/12/2019, 02/25/2019 Abdominal Aortic Aneurysm (A AA) Screen Completed 09/15/2022 Medical Devices Implanted Type Area Welding Estimator Device Identifier Shelf Expiration Date Model / Serial / Lot [employer] Vascade Mvp 6-12fr Venous Closure [id number] - [id number] Implanted:Qty: 1 on 09/30/2023 by Santiago Morelos MD at [facility] Right: Femoral Vein [employer] 06/27/2025 [id number] / / [id number] Endoprosthesis Endoprosthesis Bilateral: Knee Description:Bilateral knee r eplacements Medtronic Implantable Loop Recorder- 020 Implanted:01/15 by Brian Washington MD (Quantity not on file) Implantable Loop Recorder Chest Medtronic Cardiac Rhythm Mgmt [id number] / [id number] / Medtronic Cardiac Rhythm Mgmt 5076-58 Capsurefix Novus 6.2fr 2mm 58cm Bipolar Screw In Implantable - [id number] - [id number] Implanted:Qty: 1 on 06/25/2021 by Shaka Pennington III, MD at [facility] Lead Medtronic Inc [id number] 02/19/2023 5076-58 / [id number] / Medtronic Cardiac Rhythm Mgmt 5076-52 Capsurefix Novus 6.2fr 2mm 52cm Bipolar Screw In Implantable Latex Free - [id number] - [id number] Implanted:Qty: 1 on 06/25/2021 by Shaka Pennington III, MD at [facility] Lead Medtronic Inc [id number] 04/03/2023 5076-52 / [id number] / [employer] Percutaneous Transcatheter Amplatzer Amulet 22mm [id number] - [id number] Implanted:Qty: 1 on 09/30/2023 by Santiago Morelos MD at [facility] Left Atrial Appendage Occluder Left: Atrial Appendage [employer] 09/27/2027 9-ACP2- [id number] / / [id number] Medtronic Cardiac Rhythm Mgmt [id number] Sumi S Mri Surescan 50.8x46.6mm 2 Chamber 7.4mm Pacemaker 22.5gm - [id number] - [id number] Implanted:Qty: 1 on 06/25/2021 by Shaka Pennington III, MD at [facility] Pacemaker Medtronic Inc [id number] 10/24/2022 [id number] / [id number] / [employer] Device Clsr Perclose Prostyle Sut-Mediatd Closure-Repair Sys [id number] - [id number] Implanted:Qty: 1 on 09/30/2023 by Santiago Morelos MD at [facility] Right: Femoral Vein [employer] 07/27/2025 [id number] Procedures Procedure Name Priority Date/Time Associated Diagnosis Comments DEVICE CHECK - REMOTE Routine 01/30/2025 7:30 AM CDT Paroxysmal atrial fibrillation (HCC) SSS (sick sinus syndrome) (HCC) CT CHEST ABDOMEN PELVIS W CONTRAST Schedule Routine, Read Routine (OP Routine) 09/15/2022 1:18 PM CDT Brain mass from Last 3 Months or Most Recently Relevant to Health Maintenance Results * DEVICE CHECK - REMOTE (01/30/2025 7:30 AM CDT) Anatomical Region Laterality Modality Other Narrative 02/01/2025 4:45 PM CDT Medtronic [place] Dual Pacemaker. Dx; H/O Sinus Arrest, Syncope, RBBB, Parox Afib/Aflutter. DOI 06/25/2021-Aditi (EP)Felix (CARD). Carelink remote monitoring. ILR was not explanted. LAAO 09/30/23 Routine AAIR and <> DDDR Pacemaker Remote. Transmission attached. Battery status: 2.99 V , 9.0 years remaining battery life to DARRIUS. Stable lead impedances, pacing and sensing thresholds. Presenting rhythm: AFib/FILLING SEPARATOR AP-< 0.1%, FILLING SEPARATOR-100.0% 1 AT/AF episodes noted, longest episode was 24 hours/day in duration, IEGM demonstrates AFib. AF [place] 100.0%. No Ventricular high rate episodes detected. Medications: Plavix 75 mg, metoprolol 25 mg See scanned report. Office pacemaker follow up: 09/25/25 [facility] remote f/u 05/08/25. Patrick Sutton RN us Santiago Morelos MD CV CARDIAC [...] Recently Relevant to Health Maintenance Insurance MEDICARE MEDICARE [facility] MEDICARE SUPPLEMENT MEDICARE [facility] MEDICARE SUPPLEMENT Advance Directives For more information, please contact: [phone] * Full Code (Latest Code Status on File) Date Activated Date Inactivated Comments 06/25/2021 12:44 PM 06/25/2021 8:27 PM Care Teams Athletic Agent Relationship Specialty Start Date End Date Immanuel Mcallister MD [address] [place] [id number] PCP - General Family Medicine 07/28/23
--- OUTSIDE RECORDS SUMMARY | 2025-03-12 09:35 | XMS_ITS | Clinical Summary ---
Author Organization [facility] Address [facility] [facility] [place] [address] Care Team Providers Care Varitype Operator Name Role Phone Immanuel Mcallister MD [...] mg by mouth daily at bedtime. Active tamsulosin (FLOMAX) 0.4 mg capsule Take 0.4 mg by mouth daily. Active Saccharomyces boulardii (FLORASTOR) 250 mg Capsule Take by mouth. Active Glucosamine Sulfate 1,000 mg Capsule Take 1,500 mg by mouth daily. Active glucosamine-cho ndroitin (ARTHX DS) 500-400 mg Capsule Take 2 Capsules by mouth daily. Active Fish Oil-[place]-3 Fatty Acids 360-1,200 mg Capsule Take 1 [...] Encounters Date Type Department Care Team Description 03/12/2025 Orders Only [facility] Oncology and Hematology - Jose Juan [address] [place] [address] Giovanni Montenegro MD Chronic anemia (Primary Dx) 02/12/2025 External Device Data STL ABSTRACTION Provider, Abstract 02/12/2025 External Device Data STL ABSTRACTION Provider, Abstract 01/16/2025 External Device Data STL ABSTRACTION Provider, Abstract 01/15/2025 External Device Data STL ABSTRACTION Provider, Abstract 12/12/2024 External Device Data STL ABSTRACTION Provider, Abstract 12/12/2024 External Device Data STL ABSTRACTION Provider, Abstract 12/12/2024 External Device Data STL ABSTRACTION Provider, Abstract 12/12/2024 Orders Only [facility] Oncology and Hematology [facility] [address] [place] [id number] Giovanni Montenegro MD from Last 3 Months Family History Medical [...] Sign Reading Time Taken Comments Blood Pressure 133/71 09/07/2024 9:45 AM CDT Pulse 80 09/07/2024 9:45 AM CDT Temperature 36.1 C (96.9 F) 09/07/2024 9:45 AM CDT Respiratory Rate 15 09/07/2024 9:45 AM CDT Oxygen Saturation 98% 09/07/2024 9:45 AM CDT Inhaled Oxygen Concentration - - Weight 92.4 kg (203 lb 9.6 oz) 09/07/2024 9:45 A M CDT Height 170.2 cm (5' 7) 10/05/2023 11:20 AM CDT Body Mass Index 31.89 10/05/2023 11:20 AM CDT Plan of Treatment Upcoming Encounters Date Type Department Care Team (Late st Contact Info) Description 03/15/2025 10:15 AM CDT Office Visit [facility] Oncology and Hematology [facility] [address] [facility] [address] [place] [address] Giovanni Montenegro MD [address] [facility] [address] [place] [address] Health Maintenance Due Date Last Done Comments DTAP/TDAP/TD VACCINES (1 - Tdap) 1959 Traditional Medicare (ACO) A nnual Wellness Visit 1959 PNEUMOCOCCAL VACCINE 50+ YEA RS (2 of 2 - PCV20 or PCV21) 2016 2015 RSV VACCINE (60+ or ) (1 - 1-dose 75+ series) 2017 INFLUENZA VACCINE (#1) 2024 02/12/2020 ZOSTER VACCINE Completed 05/12/2019, 02/25/2019 Procedures Procedure Name Priority Date/Time Associated Diagnosis Comments CBC WITH DIFFERENTIAL Routine 12/12/2024 2:00 PM CDT from Last 3 Months Results * CBC WITH DIFFERENTIAL (12/12/2024 2:00 PM CDT) Blood us Giovanni Montenegro MD HEMATOLOGY ORDERABLES Final Res ult from Last 3 Months Insurance MEDICARE PART A AND B BCBS SUPP Care Teams Varitype Operator Relationship Specialty Start Date End Date Immanuel Mcallister MD [address] [place] [phone] PCP - General Family Practice 10/05/23
--- OUTSIDE RECORDS SUMMARY | 2025-03-12 09:35 | XMS_ITS | Encounter Summary ---
Author Organization [facility] Address [address] [place] [address] Care Team Providers Care Marketing Ambassador Name Role Phone Immanuel Mcallister MD Primary Care Provider [phone] Encounter Details Date Type Department Care Team (Late st Contact Info) Description 06/07/2024 Orders Only [facility] Health Information Management [address] [place] [id number] Scanning, Provider Social History Tobacco Use Types Packs/Day Years Used Date Smoking Tobacco: Former Cigarettes 0 05/30/1962 - 05/30/1965 Pipe Cigars Smokeless Tobacco: Never Alcohol Use Standard Drinks/Week Comments Yes 0 (1 standard drink = 0.6 oz pur e alcohol) AUDIT-C Answer Date Recorded Q1: How often do you have a drink containing alc ohol? Monthly or less 02/09/2024 Average Number of Drinks Not on file Frequency of Binge Drinking Not on file 01/28 Personal Safety Answer Date Recorded Have you ever been in or are you currently in a harmful physical or emotional relationship or is someone making you feel afraid or unsafe? Denies 12/09/2023 Sex and Gender Information Value Date Recorded Sex Assigned at Male 08/03/2018 11:22 AM ORCHID HAND Legal Sex Male 3:45 AM ORCHID HAND Gender Identity Male 08/03/2018 11:22 AM ORCHID HAND Sexual Orientation Straight 08/03/2018 11 :23 AM ORCHID HAND Occupation Industry Job Start Date Job End Date Retired Not on file Not on file Not on file documented as of this encounter Plan of Treatment Not on file documented as of this encounter Procedures Procedure Name Priority Date/Time Associated Diagnosis Comments SCAN - LABS 06/07/2024 documented in this encounter Results * SCAN - LABS (06/07/2024) us Provider Scanning Final Result documented in this encounter Visit Diagnoses Not on filedocumented in this encounter Care Teams Marketing Ambassador Relationship Specialty Start Date End Date Immanuel Mcallister MD [address] [place] [id number] PCP - General Family Medicine 07/28/23 documented as of this encounter
[2025-03-12 09:36] LABS: Alanine Aminotransferase 13 U/L (6-50); Albumin Level 3.8 g/dL (3.5-5.1); Alkaline Phosphatase 93 U/L (38-126); Anion Gap 8 mmol/L (4-12); Aspartate Amino Transferase 27 U/L (17-59); Bilirubin,Total 0.9 mg/dL (0.2-1.3); Blood Urea Nitrogen 16 mg/dL (9-20); Calcium 8.8 mg/dL (8.4-10.2); Carbon Dioxide 29 mmol/L (22-30); Chloride 104 mmol/L (98-107); Estimated Glomerular Filt Rate > 60; Glucose 100 mg/dL (65-110); Potassium 4.5 mmol/L (3.4-5.0); Sodium 141 mmol/L (137-145); Total Protein 7.1 g/dL (6.3-8.2)
[2025-03-12 10:48] LABS: Vitamin B12 906.0 pg/mL (239-931)
[2025-03-12 11:34] LABS: Iron 58 ug/dL (49-181)
[2025-03-12 11:43] LABS: Percent Iron Saturation 21 % (20-50)
[2025-03-12 12:10] LABS: Ferritin 68.60 ng/mL (11.1-264)
== END 2025-03-12 08:48 | disposition home or self-care (01) ==
LOC: ANHLAB 08:54
PROVIDERS: PCP Family Medicine; Visit Provider Internal Medicine Hematology & Oncology
DX: D64.9 Anemia, unspecified (principal)
CPT/HCPCS: 36415; 80053; 82607; 82728; 82746; 83540; 83550; 85025